=== PATIENT | female | born 1975 | race Caucasian/White ===

== ENCOUNTER 2017-01-21 10:06 | Inpatient (IN) | payer OTHER ==
[~2017-01-21] VITALS: Ht 162.6 cm; Wt 51.7 kg
[2017-01-21 11:02] LABS: ABSOLUTE BASOPHIL COUNT 0.1 /CUMM (0.0-0.2); ABSOLUTE EOSINOPHIL COUNT 0.1 /CUMM (0.0-0.7); ABSOLUTE GRANULOCYTE CT 21.8 /CUMM (1.4-6.5); ABSOLUTE LYMPH COUNT 6.4 /CUMM (1.2-3.4); ABSOLUTE MONOCYTE COUNT 1.4 /CUMM (0.10-0.60); BASOPHIL % 0.2 % (0.0-2.0); EOSINOPHIL % 0.2 % (0-5); GRANULOCYTE % 73.3 % (42.2-75.2); HEMATOCRIT 42.6 % (37-47); MEAN CORPUSCULAR HGB 30.8 PG (27.0-31.0); MEAN CORPUSCULAR HGB CONC 32.8 G/DL (33.0-37.0); MEAN CORPUSCULAR VOLUME 93.9 FL (81.0-99.0); MEAN PLATELET VOLUME 8.4 FL (7.4-10.4); PLATELET COUNT 514 /CUMM (130-400); RBC DISTRIBUTION WIDTH 17.5 % (11.5-14.5); RED BLOOD CELL CT 4.54 /CUMM (4.20-5.40); WHITE BLOOD CELL COUNT 29.7 /CUMM (4.8-10.8)
--- NOTE | 2017-01-21 11:56 | History & Physical ---
JERRI PACE,[employer] 01/21/17 1155: General Information and HPI MD Statement: I have seen and personally examined AGATHA MICHEL and documented this H&P. The patient is a 41 year old F who presented with a patient stated chief complaint of decreased mentation and Altered mental Status. Source of Information: patient, family, old records, Chris Exam Limitations: not alert/orientated, clinical condition History of Present Illness: Mrs. 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 Much of the clinical history was obtained from the patient's as the patient was somnolent and laconic. At the end of December 2016 the patient had some dental work done owing to a last minute attempt at free dental coverage covered by her . Following the dental procedure where 3 of her upper first and second molars on the right were removed she was subsequently prescribed an antibiotic. Her states she consumed the entire dose of antibiotics. Her is unable to recall the name of the antibiotic nor is he able to recall the name of the dentist who performed the tooth extractions. On Thursday01/18/2017 the patient experienced worsening pain at the site of her dental extractions and dysphagia for solids. Over the last 48 hours the patient 's clinical condition has continued to deteriorate with the patient becoming more somnolent and less responsive. She has had a decrease in appetite and only has been able to tolerate PO soda, consuming up to a 12 pack of soda per day. The patient does have an extensive medication history and the of the patient Chris states that since the patient was prescribed Nucynta and Soma approximately 3 years ago the patient's clinical and mental condition have continued to decline. Functionally she now depends more on the assistance of her and her son to help her with activities of daily living. Additional information regarding the patient can be obtained for from a who can be reached on [phone]. Her primary care physician is Dr. Mahoney Allergies/Medications Allergies: Coded Allergies: tramadol (Intermediate, SEIZURES 01/21/17) Compliance With Home Meds: UNKNOWN Past History Travel History Traveled to [place] past 21 day No Medical History Musculoskeletal: chronic back pain Psychiatric: depression Endocrine: diabetes, Sohail's thyroiditis Blood Disorders: Hx of Toxic Shock Syndrome Surgical History Surgical History: Right Shoulder Procedure. Past Family/Social History Family History Relations & Conditions if any FATHER (Diabetic). MOTHER Relation not specified for: Early CAD Psychosocial History Where do you live? Home Who Do You Live With? spouse, child Services at Home: None Primary Language: Swedish Smoking Status: Current Everyday Smoker (Pack and a Half Per Day) ETOH Use: heavy use, Previous history of heavy use till 12/2016 Illicit Drug Use: denies illicit drug use Living Will? no Power of Senior Accountant/HCP? no Functional Ability ADLs Independent: dressing, eating, toileting, bathing. Ambulation: walker IADLs Needs Assist: shopping, housework, finances, food prep, telephone, transportation, medication admin. Employment History Employment Unemployed Review of Systems Review of Systems Constitutional: Reports: chills, diaphoresis, fever. Denies: malaise, weakness. EENTM: Reports: throat pain, mouth pain, tooth pain. Denies: epistaxis, throat swelling. Cardiovascular: Denies: chest pain, edema, orthopena, palpitations. Respiratory: Denies: cough, hemoptysis, orthopnea, short of breath, sputum production. GI: Denies: abdominal pain, bloating, constipation, diarrhea, distention, bowel incontinence, melena, nausea, bloody stool, changes in stool. Genitourinary: Denies: discharge, dysuria, frequency, hematuria, hesitation, nocturia. Musculoskeletal: Reports: joint pain, muscle stiffness. Denies: back pain, gout, joint swelling, muscle pain. Exam & Diagnostic Data Last 24 Hrs of Vital Signs/I&O Vital Signs Date Time Temp Pulse Resp B/P Pulse O2 O2 Flow FiO2 Ox Delivery Rate 01/21 1148 93.0 97 24 173/94 100 Room Air Room Air 01/21 1115 93.6 96 25 159/87 96 Room Air Room Air 01/21 1102 100 Room Air Room Air 01/21 1015 94.3 98 25 164/106 100 Room Air Room Air Intake & Output 01/21 1600 01/21 0800 01/21 0000 Intake Total 2000 Output Total 200 Balance 1800 Intake, IV 2000 Output, Urine 200 Physical Exam General Appearance Moderate Distress, Somnolent , Kussmaul Respirations. HEENT Pupils Sluggish and Bilatterral Reactive to light, Mucous membranes dry, Poor oral dentition, with several teeth extracted. Right Upper Maxillofacial Area. Erythematous, White discharge present Lymphatic Cervical nl Cardiovascular Regular Rate, Normal S1, Normal S2, No Murmurs Lungs Clear to Auscultation Abdomen Normal Bowel Sounds, Soft, No Tenderness Neurological Patient was Alert, however not oriented to time or place. She mumbled a lot of her words and expressed the desire to be discharged. She was able to follow verbal Commandes. Extremities No Clubbing, No Cyanosis, No Edema, Normal Pulses, Cold Feet Vascular Normal Pulses Last 24 Hrs of Labs/Brooks: Laboratory Tests 01/21/17 1115: Methadone Screen Pending, Barbiturate Screen Pending, Ur Phencyclidine Scrn Pending, Amphetamines Screen Pending, U Benzodiazepines Scrn Pending, Urine Cocaine Screen Pending, Urine Cannabis Screen Pending, Urinalysis LIGHT H, Urine Color YEL, Urine Clarity HAZY H, Urine pH 6.0, Ur Specific [place] 1.025, Urine Protein 100 H, Urine Ketones >=80, Urine Nitrite NEG, Urine Bilirubin NEG , Urine Urobilinogen 0.2, Ur Leukocyte Esterase NEG, Ur Microscopic SEDIMENT EXAMINED, Urine RBC 3-5, Urine WBC RARE, Ur Epithelial Cells MOD H, Urine Bacteria FEW H, Granular Casts 3-5 H, Urine Hemoglobin MOD H, Urine Glucose > =1000 H 01/21/17 1038: CBC w Diff MAN DIFF ORDERED, RBC 4.54, MCV 93.9, MCH 30.8, RDW 17.5 H, MPV 8.4, Gran % 73.3, Lymphocytes % 21.5, Monocytes % 4.8, Eosinophils % 0.2, Basophils % 0.2, Absolute Granulocytes 21.8 H, Segmented Neutrophils 65, Band Neutrophils 7 H, Absolute Lymphocytes 6.4 H, Lymphocytes 21, Monocytes 3, Absolute Monocytes 1.4 H, Eosinophils 1, Absolute Eosinophils 0.1, Absolute Basophils 0.1, Metamyelocytes 3 H, Platelet Estimate INCREASED, Normocytic RBCs VERIFIED, Normochromic RBCs VERIFIED, PUBS MCHC 32.8 L 01/21/17 1030: Bicarbonate Actual 5 L, Mixed VBG pH 6.86 L, Mixed VBG pCO2 25 L, Mixed VBG O2 Saturation 35, Carboxyhemoglobin 0.8 L, O2 Concentration % RA, Anion Gap , Estimated GFR > 60, BUN/Creatinine Ratio 12.2, Glucose 759 *H, Lactic Acid 8.8 H, Calcium 10.4 H, Total Bilirubin 0.7, AST 45 H, ALT 24, Alkaline Phosphatase 194 H, Ammonia 40 H, Troponin I 0.05, Total Protein 8.1, Albumin 5.3 H, Globulin 2.8, Albumin/Globulin Ratio 1.9, Phlebotomy Draw Site VENOUS, Acetone Level POSITIVE AT 1:8 DIL Microbiology 01/21 1142 BLOOD: Blood Culture - ORD 01/21 1142 BLOOD: Blood Culture - ORD 01/21 1115 URINE ROUT: Urine Culture - RECD Diagnostic Data EKG Results Repear EKG NSR Assessment/Plan Assessment: Mrs. 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 Patient admitted to critical care unit for further management and closer monitoring. Problem List: #Diabetic ketoacidosis with severe acidosis pH of 6.8, likely precipitated by an infection. Positive acetone. Dil 1:4 #Hypothermia #Leukocytosis possible site of infection is teeth versus facial abscess. #Hyperkalemia Freire day # 1 Respiratory Saturating well 97 % on RA. Continue to monitor. Chest x-ray showed no consolidation or areas of focal infection. ID Although the patient received vancomycin in the emergency department, Begin Empiric IV Unasyn 3 g every [address] of head and neck to rule out any abscesses. Elevated WBC could be in the setting of acute infection/abcess or stress demargination. Patient is currently Hypothermic and has needed bear hugger support to ensure the patient's temperature reaches normal physiologicl limits. Target Temperature: 98.5-99.5. Other sources of infection to be ruled out and an abdominal complete, ultrasound has been ordered, to rule out intrao abdominal pathology. AST was elevated:45 Viral influenza Rapid quick strep Cardiovascular Initial EKG did not show any ST segment changes or acute changes on EKG. If electrolytes remained deranged consider repeating EKG to monitor for any cardiac arrhythmia that may result from potential electrolyte derangements. Initial troponin was 0.05. Initial lactic acid was 8.8 however subsequent one was trended down to 6.1. Repeat one more lactic acid to ensure no lactic acidosis and evidence of hypoperfusion resulting in end organ damage. Continue monitoring lactic acid until trending within normal limits. Heme Current WBC on admission: 29.7. Thrombocythemia. Platelets 514. Repeat CBC in AM Metabolic Metabolic Derangements in the setting of acute DKA. Blood sugar on admission 759-->. Insulin drip started started at 7 units per hour. Titrate to ensure rapid correction does not occur. Target blood sugar should be between 150 -180. Start bicarbonate drip., till pH reaches a minumum of 7. Administer potassium with a combination of normal saline and sodium bibicarbonate. Boluses of 10 mEq KCl can be given as needed. Target Potassium is 4.5. Monitor finger sticks every hour. BEP every 2 hours. Once blood sugar reaches 250, IV fluids can then be changed to D5 half-normal saline with 20 mEq of potassium chloride to ensure patient does not become hypoglycemic. Monitor AG, once normalizes, IV insulin can be switched to SC insulin, following an overlap with IV and SC insulin. Monitor daily phosphrus and replete. Consider HbA1C add on for an indication of how the patient blood sugar has been maintained over the last three months. Daily Weights. Alimentary NPO for now. Once patient is regains mentation consider Swallow Evaluation. Oral Hygiene. Nutritional Consult in AM. Nicotine patch PRN. Neurology Consider Psych Consult in AM. The patient seems to have had a history of alcohol abuse. She also has a history of opiod depandance and there was mention of a trial of suboxone to wean her off opiod medications. Urines also positive for Benzodiazepine. Avoid any sedating medications overnight. Patient's claims that she has had a bad reaction to tramadol in the past whereby the patient seizes. Other Obtain medical records from Dentist in AM Diet: NPO IVF: Refer to Above DVT ppx ALPS + Heparin Sub Q Code Full As Ranked By This Provider Problem List: 1. Sepsis 2. DKA (diabetic ketoacidoses) 3. Toothache Core Measures/Miscellaneous Acute Coronary Syndrome ACS Diagnosis: No Cerebrovascular Accident CVA/TIA Diagnosis: No Congestive Heart Failure CHF Diagnosis: No Venous Thromboembolism VTE Risk Factors: Acute medical illness, Age > 40 No Mech VTE prophylaxis d/t: No contraindications No VTE Pharm Prophylaxis d/t: No contraindications VTE Diagnosis: No VTE Type: NONE VTE Confirmed by (Test): NONE Severe Sepsis Severe Sepsis Present: No Septic Shock Septic Shock Present: No Miscellaneous Documentation Attending Case Discussed With: Dr Martines Primary Care Physician: PETER MAHONEY MD Patient sees these Specialists NA Level of Patient Care: Critical Care (CRI) ROXI ALLEN 01/21/17 1159: Resident Review Statement Resident Statement: examined this patient, discussed with mechanical engineering intern, discussed with family Other Findings: Patient is 41-year-old female with past medical history significant for chronic knee pain and back pain was brought in by after she was found lethargic and confused this morning. Per , patient had dental work done 2 weeks ago and had some teeth removed on the right side. reported that patient was advised to have those teeth removed a year ago because of an ongoing infection. Post removal, patient completed her course of antibiotics with clindamycin. On 01/18/17, patient started reporting of pain in the throat and difficulty swallowing. Per patient did not have any fever or chills at home. No sick contacts at home. states that patient spends most of her time on the couch watching TV. Per , patient never had a diagnosis of diabetes and was not on any medication for that. 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 On examination patient was very confused and lethargic. Minimally responsive to instructions. Her speech was incoherent and not understandable. Labs WBC 29.7, hemoglobin 14, sodium 1:30, potassium 3.9, Bicarb <5, blood glucose on admission 759, lactic acid 8.8, U tox positive for benzodiazepines. UA negative for UTI however positive for hemoglobin and glucose >1000. We've EGD revealed pH of 6.86 Anion gap of 32 mEq/L was per liter Imaging Chest x-ray done in ER The lungs are clear with no focal consolidation or other abnormality evident. The heart and mediastinal structures are normal. No bony abnormality is seen. Assessment and plan. Elevated blood glucose level due to DKA The patient will be admitted to critical care unit for management of blood glucose General started on insulin drip starting at 7 units per hour, will monitor labs including electrolytes and blood glucose every 2 hours and adjust the insulin drip accordingly Will start patient on bicarbonate drip running at 75 in half normal saline, will start normal saline at 500 per hour with 20 meq k for the first 2 hours and then at 250cc/hr. Will watch potassium closely. Endocrinology consult service Dr. Damico on board and agreement with above plan. Tooth infection Poor dental hygiene, yellowish material seen in the right moral region. We'll start patient on vancomycin and get ID consult on board Temperature 93.6 on admission, will continue bear hugger for now. Will hold off. Pain meds for now for chronic pain and reconsider once patient is more awake and alert. 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 She is on Nucynta and Soma for her pain. 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 The patient presented to the ED on 01/21/2017 after the patient progressively worsened at home. Several weeks ago, the patient underwent 3-6 fractions, and she was prescribed clindamycin. Three days prior to admission, the patient experienced increased pain at the dental extraction site along with dysphasia. Over the past 48 hours the patient was unable to eat, noting she was consuming up to a 12 pack of soda per day. She became progressively somnolent and less responsive and she was sent to the emergency department for further evaluation. The patient was evaluated and found to be in severe he came a with a severe metabolic acidosis noting that her pH was 6.8. The patient also had a white count of 29,000. Chest x-ray and urinalysis were unremarkable. She was started on an insulin drip, and aggressive IV fluid rehydration with potassium repletion as per endocrinology. She was also given Narcan with improvement in her level of responsiveness. The patient was pancultured and given vancomycin and ceftazidime. She was placed on a bear hugger for hypothermia. She is not able to offer complaints at the present time. Impression: 1. Acute DKA. 2. Hypothermia and markedly cytosis, rule out odontogenic source of infection in the setting of recent dental work. 3. A SPECIAL POPULATION PARAPROFESSIONAL infection was considered however the patient's mental status is overall improving. 4. An intraoperative abdominal process will be considered as well. 5. History of chronic pain, on Nucynta and Soma. 6. 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 Plan: * Continue insulin drip, q 1 hour blood sugars, IVF resuscitation, labs q 2 hours and aggressive electrolyte repletion. Appreciate endocrine input. * Bicarbonate has been given and we will check a follow-up arterial blood gas. * CT of the maxillofacial area and neck ordered. Will need to follow up results after the testing is been completed. * Start Unasyn 3 g IV every 6 hours. * Will follow up culture results. * Continue to follow ID recommendations, appreciate input. * Agree with abdominal ultrasound. * Check for influenza and do a quick strep. * We will continue DVT prophylaxis at all times. * The patient is critically ill and needs to be monitored in the critical care unit. I discussed plan of care with the housestaff and asked them to contact me should the patient's condition change or deteriorate.
--- NOTE | 2017-01-21 12:24 | RADIOLOGY REPORT ---
EXAMINATION: XR PORTABLE CHEST CLINICAL INFORMATION: Pneumonia. Altered mental status. COMPARISON: None TECHNIQUE: Portable portable AP supine chest. view of the chest was obtained. FINDINGS: The lungs are clear with no focal consolidation or other abnormality evident. The heart and mediastinal structures are normal. No bony abnormality is seen. IMPRESSION: Unremarkable examination.
--- NOTE | 2017-01-21 12:27 | ED CRITICAL CARE ---
History of Present Illness General Chief Complaint: General Adult Stated Complaint: HIGH BLOOD SUGAR Source: family, old records, EMS Exam Limitations: clinical condition Vital Signs & Intake/Output Vital Signs & Intake/Output Vital Signs Date Time Temp Pulse Resp B/P Pulse O2 O2 Flow FiO2 Ox Delivery Rate 01/21 1217 93.6 103 22 167/86 100 Room Air Room Air 01/21 1148 93.0 97 24 173/94 100 Room Air Room Air 01/21 1115 93.6 96 25 159/87 96 Room Air Room Air 01/21 1102 100 Room Air Room Air 01/21 1015 94.3 98 25 164/106 100 Room Air Room Air Allergies Coded Allergies: tramadol (Intermediate, SEIZURES 01/21/17) Triage Note: PT PRESENTS TO ER WITH ALTERED MENTAL STATUS. PT BIBA FROM HOME. PER EMS SPOUSE CALLED 911 BECAUSE PT WAS LETHARGIC AND AMS. PT WAS FOUND BY EMS TO BE COVERED IN FECES AND WITH A BLOOD SUGAR READING HIGH. UPON ARRIVAL PT AMS AND PT UNKEMPT AND COVERED IN FECES. PT BS READING HIGHER THAN 500. PT UNABLE TO ANSWER QUESTIONS OR VERBALIZE ANY COMPLAINTS. PT GRABBING AT LINES AND WIRES. PT CLEANED AND TURNED AND POSITIONED. PT PLACED INTO A CLEAN GOWN. BILATERAL ACCESS ESTABLISHED AND PT PLACED ON JUTE BAG SEWER. DEL TORO CATH INSERTED Triage Nurses Notes Reviewed? yes Onset: Last week Duration: day(s):, constant, continues in ED Timing: recent history Injury Environment: home Severity: severe Pain Location: mouth Modifying Factors: Improves With: rest. Worsens With: movement. Associated Symptoms: confusion, trouble walking LMP (ages 10-50): unknown : No Patient currently breastfeeds: No HPI: Spouse reports the patient has had poor health dentition lack of medical care and follow-up for several years prior to admission. She has been on opiates for chronic pain attempted weaning with Suboxone. 2 weeks prior to admission patient had dental extractions for chronic caries. 5 days prior to admission patient had increased fatigue activity appetite with increased drinking of fluids. Spouse reports there's been no fever chills nausea vomiting diarrhea abdominal pain chest pain cough headache dysuria rash bleeding. Past History Travel History Traveled to [place] past 21 day No Medical History Any Pertinent Medical History? see below for history Psychiatric: depression Endocrine: diabetes, Sohail's thyroiditis Surgical History Surgical History: non-contributory Psychosocial History What is your primary language Puerto Rican Tobacco Use: UN Family History Hx Contributory? No Review of Systems Review of Systems Constitutional: Reports: see HPI, weakness. Eyes: Reports: no symptoms. Ears, Nose, Throat, Mouth: Reports: no symptoms. Respiratory: Reports: no symptoms. Cardiovascular: Reports: no symptoms. Gastrointestinal/Abdominal: Reports: no symptoms. Genitourinary: Reports: no symptoms. Musculoskeletal: Reports: no symptoms. Skin: Reports: no symptoms. Neurological/Psychological: Reports: see HPI, confusion, weakness. All Other Systems: Reviewed and Negative Physical Exam Physical Exam General Appearance: lethargic, severe distress, thin Head: atraumatic, normal appearance Eyes: Bilateral: normal appearance, PERRL, EOMI, normal inspection. Ears, Nose, Throat, Mouth: hearing grossly normal, dry mucous membranes Neck: normal inspection, supple, full range of motion, normal alignment Respiratory: normal breath sounds, chest non-tender, no respiratory distress, quiet respiration Cardiovascular: regular rate/rhythm, normal peripheral pulses, norml femoral pulses equa Peripheral Pulses: 4+ carotid (R), 4+ carotid (L) Gastrointestinal: normal bowel sounds, soft, non-tender, no organomegaly Back: normal inspection, normal range of motion Extremities: normal range of motion, no ligament instability Neurologic/Psych: disoriented x 3, motor weakness Skin: pallor Core Measures ACS in differential dx? Yes ASA ordered for poss ACS? No-ACS ruled out CVA/TIA Diagnosis: No Severe Sepsis Present: Yes BC x2: Yes Lactic Acid x2: Yes IV ABX Broad Spectrum: Yes NS/LR Started: Yes Septic Shock Present: No ED Sepsis Exam Date of Focused Sepsis Exam: 01/21/17 Time of Focused Sepsis Exam: 1355 Sepsis Cardiac Exam: Tachycardia Sepsis Resp Exam: CTA Sepsis Cap Refill Exam: >2 sec Sepsis Peripheral Pulse Exam: Normal Sepsis Peripheral Pulse Location: Radial Sepsis Skin Color Exam: Pale Skin Temp/Moisture Exam: Cool/Dry Progress Differential Diagnoses I considered the following diagnoses in my evaluation of the patient: Bacteremia pneumonia DKA Plan of Care: Orders Procedure Date/time Status BASIC ELECTROLYTES PLUS BUN&CR 01/21 1500 Active LACTIC ACID 01/21 1338 Active Add-on Test (ER Only) 01/21 1328 Active BASIC ELECTROLYTES PLUS BUN&CR 01/21 1249 Active FingerStick- Glucose 01/21 1203 Active LOWER RESPIRATORY CULTURE 01/21 1155 Active Patient Data 01/21 1152 Active BLOOD CULTURE 01/21 1142 Active Restraint- Medical 01/21 1130 Active Admit to inpatient 01/21 1128 Active [place], Insertion/Removal/Asses 01/21 1108 Active CULTURE,URINE 01/21 1108 Active URINE DRUG SCREEN FOR ER ONLY 01/21 1108 Complete URINALYSIS 01/21 1108 Complete Intake & Output 01/21 1102 Active Restraint- Discontinue 01/21 1100 Active Patient Safety Monitor 01/21 1100 Active MIXED VENOUS BLOOD GAS (GEN) 01/21 1038 Complete TROPONIN LEVEL 01/21 1038 Complete LACTIC ACID 01/21 1038 Complete COMPREHENSIVE METABOLIC PANEL 01/21 1038 Complete CBC WITHOUT DIFFERENTIAL 01/21 1038 Complete AMMONIA LEVEL 01/21 1038 Complete ACETONE 01/21 1038 Complete EKG 01/21 1038 Active Current Medications Sig/Philip Start time Last Medication Dose Stop Time Status Admin Potassium Chloride 20 MEQ Q4H 01/21 1545 AC (KCl 20MEQ in NS 01/22 0344 1000ML) Sodium Chloride 1,000 ML (Normal Saline 0.9%) Potassium Chloride 20 MEQ Q2H 01/21 1345 AC (KCl 20MEQ in NS 01/21 1544 1000ML) Sodium Chloride 1,000 ML (Normal Saline 0.9%) Potassium Chloride 10 MEQ Q1H 01/21 1330 CAN 01/21 1431 Sodium Bicarbonate 75 MEQ Q13H 01/21 1300 AC (Sodium Bicarbonate 8.4%) Sodium Chloride 1,000 ML (Half Normal Saline) Sodium Chloride 1,000 ML Q2H 01/21 1300 CAN (Normal Saline 0.9%) 01/21 1459 Vancomycin HCl 1,000 MG ONCE ONE 01/21 1228 CAN Sodium Chloride 250 ML 01/21 1229 (Normal Saline 0.9%) Insulin Human Regular 100 UNIT ONCE ONE 01/21 1200 CAN (Novolin R (Insulin 01/21 1201 Drip)) Sodium Chloride 100 ML (Normal Saline 0.9%) Sodium Bicarbonate 100 MEQ ONCE ONE 01/21 1130 CAN (Sodium Bicarbonate 01/21 1809 8.4%) Dextrose/Water 1,000 ML (D5W 1000) Laboratory Tests 01/21/17 1115: Urine Opiates Screen < 100.00, Methadone Screen < 40, Barbiturate Screen < 60, Ur Phencyclidine Scrn < 6.00, Amphetamines Screen < 100, U Benzodiazepines Scrn 491 H, Urine Cocaine Screen < 50, Urine Cannabis Screen 13.70, Urinalysis LIGHT H, Urine Color YEL, Urine Clarity HAZY H, Urine pH 6.0, Ur Specific [place] 1.025, Urine Protein 100 H, Urine Ketones >=80, Urine Nitrite NEG, Urine Bilirubin NEG, Urine Urobilinogen 0.2, Ur Leukocyte Esterase NEG, Ur Microscopic SEDIMENT EXAMINED, Urine RBC 3-5, Urine WBC RARE, Ur Epithelial Cells MOD H, Urine Bacteria FEW H, Granular Casts 3-5 H, Urine Hemoglobin MOD H, Urine Glucose >=1000 H 01/21/17 1038: CBC w Diff MAN DIFF ORDERED, RBC 4.54, MCV 93.9, MCH 30.8, RDW 17.5 H, MPV 8.4, Gran % 73.3, Lymphocytes % 21.5, Monocytes % 4.8, Eosinophils % 0.2, Basophils % 0.2, Absolute Granulocytes 21.8 H, Segmented Neutrophils 65, Band Neutrophils 7 H, Absolute Lymphocytes 6.4 H, Lymphocytes 21, Monocytes 3, Absolute Monocytes 1.4 H, Eosinophils 1, Absolute Eosinophils 0.1, Absolute Basophils 0.1, Metamyelocytes 3 H, Platelet Estimate INCREASED, Normocytic RBCs VERIFIED, Normochromic RBCs VERIFIED, PUBS MCHC 32.8 L 01/21/17 1030: Bicarbonate Actual 5 L, Mixed VBG pH 6.86 L, Mixed VBG pCO2 25 L, Mixed VBG O2 Saturation 35, Carboxyhemoglobin 0.8 L, O2 Concentration % RA, Anion Gap , Estimated GFR > 60, BUN/Creatinine Ratio 12.2, Glucose 759 *H, Lactic Acid 8.8 H, Calcium 10.4 H, Total Bilirubin 0.7, AST 45 H, ALT 24, Alkaline Phosphatase 194 H, Ammonia 40 H, Troponin I 0.05, Total Protein 8.1, Albumin 5.3 H, Globulin 2.8, Albumin/Globulin Ratio 1.9, Phlebotomy Draw Site VENOUS, Acetone Level POSITIVE AT 1:8 DIL Microbiology 01/21 1230 BLOOD: Blood Culture - RECD 01/21 1155 LOWER RESP: Respiratory Culture - ORD 01/21 1155 LOWER RESP: Gram Stain - ORD 01/21 1145 BLOOD: Blood Culture - RECD 01/21 1115 URINE ROUT: Urine Culture - RECD Diagnostic Imaging: Viewed by Me: Radiology Read. Discussed w/RAD: Radiology Read. CXR Impression: no acute abnormality Initial ED EKG: normal axis, normal intervals, normal p-waves, normal QRS complex, normal sinus rhythm, rhythm (sinus tachycardia), nonspecific ST T wave chg Rhythm Strip: sinus tachycardia Departure Departure Disposition: STILL A PATIENT Condition: Critical Clinical Impression Primary Impression: DKA (diabetic ketoacidoses) Secondary Impressions: Sepsis Referrals: PETER MAHONEY MD (PCP/Family) Departure Forms: Customer Survey General Discharge Information Admission Note Spoke With: PETER MAHONEY MD Documentation of Exam: Documentation of any treatments & extenuating circumstances including Concerns Regarding Discharge (functional status, medication knowledge or non-compliance, living conditions, etc.) that warrant an admission rather than observation: ICU monitoring warming blanket IV antibiotics IV insulin IV sodium bicarbonate drip serial lab exam endocrinology evaluation ICU evaluation continuing care discharge planning Critical Care Note Critical Care Note Critical Care Time: 30-74 min (45)
--- NOTE | 2017-01-21 13:37 | Cons- Endocrinology ---
General Information and HPI Consulting Request Date of Consult: 01/21/17 Requested By: medical team Reason for Consult: Diabetic ketoacidosis Source of Information: patient, family Exam Limitations: unable to give history History of Present Illness: This 41-year-old woman apparently had some extensive dental work a few weeks ago. Over the last several days she has been noted to be very lethargic and weak. Apparently she refused to come to the hospital until her finally called 911 today. She has been found to be in diabetic ketoacidosis with a pH of 6.8, blood sugar 759, bicarbonate less than 5 serum acetone positive to 1-8 dilution. Lactic acid is also high at 8.8. The patient herself cannot give history at this time but is awake and tries to answer questions. Allergies/Medications Allergies: Coded Allergies: tramadol (Intermediate, SEIZURES 01/21/17) Home Med List: Blood Sugar Diagnostic (Test Strips) 1 EACH STRIP 1 BOX N TID Diabetes Blood-Glucose Control, Normal (Meter-Check) 1 EACH EACH 1 UNIT UNK DAILY Diabetes Insulin Aspart, Recombinant (Novolog Flexpen) 100 UNIT/ML INSULN.PEN 1 PEN SC SEE ADMIN CRITERIA Diabetes This medication needs to be taken before your meals. You will need to check your blood sugar, based on the level, take this medication as per instructions below: Sliding Scale: Blood Sugar less than 80mg/dl: Initiate Hypoglycemia 80-150 mg/dl: 3 units 151-200 mg/dl: 4 units 201-250 mg/dl: 5 units 251-300 mg/dl: 6 units 301-350 mg/dl: 7 units 351-400 mg/dl: 8 units More than 400 mg/dl: 9 units call Insulin Detemir (Levemir Flextouch) 100 UNIT/ML (3 ML) INSULN.PEN 5 UNIT SC BID Diabetes Lancets (Accu-Chek) 1 EACH EACH 1 100 N TID Diabetes Levothyroxine Sodium (Synthroid) 75 MCG TABLET 1 TAB PO DAILY Hypothyroid Past History Travel History Traveled to [place] past 21 day No Medical History Psychiatric: depression Endocrine: diabetes, Sohail's thyroiditis Surgical History Surgical History: non-contributory Exam & Diagnostic Data Last 24 Hrs of Vital Signs/I&O 110/70 Physical Exam General Appearance: lethargic, moderate distress Head: normal appearance Eyes: Bilateral: normal appearance. Respiratory: increased respiratory rate Cardiovascular: tachycardia Gastrointestinal: normal bowel sounds, soft Extremities: normal inspection Neurologic/Psych: no motor/sensory deficits (stupor), lethargic Skin: intact Assessment/Plan Assessment/Plan This patient has diabetic ketoacidosis with severe acidosis and the pH of 6.8 and positive serum acetone. Her serum lactic acid is also elevated at 8.8. Possible source of infection is infected teeth and abscesses in her mouth. With regard to the ketoacidosis we need to begin an insulin drip at 7 units an hour. We need to replete her fluid and electrolytes with normal saline with 20 mEq KCl at 500 mL per hour for the next liter then 250 mL per hour thereafter. She also needs to be placed on a bicarbonate drip cause her PTH is so low. We would ordinarily dilute 100 nmols of sodium bicarbonate in 400 mL of sterile water with 20 mEq KCl and run that at 200 mL per hour. However the pharmacy cannot make that drip up quickly so we need to give bicarbonate in an IV with half normal saline. The patient's serum potassium needs to be repleted starting now as her baseline serum potassium is only 3.9 As we bring down her sugar and give her insulin the potassium is going to drop much lower. We should check her sugar every hour by fingerstick and repeat her labs every 2 hours until stable. When her fingerstick blood sugar drops to 250 we need to change her IV to D5 half-normal saline with 20 mEq KCl at 150 mL per hour. The patient has been covered with IV vancomycin for possible sepsis from her tooth infections. Consult Acknowledgment - Thank you for your consult request.
[2017-01-21 14:40] VITALS: BP 109/62
--- NOTE | 2017-01-21 15:16 | Cons- Infect Disease ---
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 On admission she was responsive only to painful stimuli. Her temperature was 93, with blood pressure 164/106. Initial labs revealed a white blood cell count 30,000, with 65 segs and 7 bands, glucose 759, BUN/creatinine 11 and 0.9, sodium 130, lactic acid 8.8, acetone +1:8, alk phosphatase 194, AST/ ALT 45 and 24, ammonia 40. Urinalysis 3-5 RBC/rare WBCs. Chest x-ray negative. She was begun on an insulin drip, bicarbonate drip, Vancomycin and Ceftazidime and IV fluids, and she was placed on a bear hugger. Presently she is able to give some history. She is complaining of being hot and wants the bear hugger off. She denies any specific pain or shortness of breath at this time. Allergies/Medications Allergies: Coded Allergies: tramadol (Intermediate, SEIZURES 01/21/17) Past History Travel History Traveled to [place] past 21 day No Medical History Psychiatric: depression Endocrine: Sohail's thyroiditis Isolation History: Standard Surgical History Surgical History: non-contributory Review of Systems Comments Unobtainable Exam & Diagnostic Data Last 24 Hrs of Vital Signs/I&O Vital Signs Date Time Temp Pulse Resp B/P Pulse O2 O2 Flow FiO2 Ox Delivery Rate 01/21 1415 95.7 112 22 175/101 100 Room Air Room Air 01/21 1345 94.6 116 20 172/105 100 Room Air Room Air 01/21 1315 93.9 112 25 192/104 100 Room Air Room Air 01/21 1217 93.6 103 22 167/86 100 Room Air Room Air 01/21 1148 93.0 97 24 173/94 100 Room Air Room Air 01/21 1115 93.6 96 25 159/87 96 Room Air Room Air 01/21 1102 100 Room Air Room Air 01/21 1015 94.3 98 25 164/106 100 Room Air Room Air Intake & Output 01/21 1600 01/21 0800 01/21 0000 Intake Total 2000 Output Total 200 Balance 1800 Intake, IV 2000 Output, Urine 200 Physical Exam Other Physical Findings: She is awake and alert, slightly agitated but oriented to person and place and in no acute distress. Temperature was 93. Skin reveals no rash. HEENT exam status post removal of several teeth from the right maxillary area, with no obvious inflammatory process. Neck is supple with no adenopathy. Lungs are clear. Heart regular rhythm with no murmur. Abdomen is soft, questionable tenderness on palpation, with positive bowel sounds. Back no CVA tenderness. Extremities no cyanosis, clubbing or edema. Neuro is without focality. Last 24 Hours of Lab Results: Laboratory Tests 01/21 01/21 01/21 1500 1406 1406 Chemistry Sodium (137 - 145 mmol/L) Cancelled 143 Potassium (3.5 - 5.1 mmol/L) Cancelled 2.7 *L Chloride (98 - 107 mmol/L) Cancelled 106 Carbon Dioxide (22 - 30 mmol/L) Cancelled < 5 *L Anion Gap (5 - 16) Cancelled BUN (7 - 17 mg/dL) Cancelled 11 Creatinine (0.5 - 1.0 mg/dL) Cancelled 0.8 Estimated GFR (>60 ml/min) > 60 BUN/Creatinine Ratio (7 - 25 %) Cancelled 13.8 Glucose (65 - 99 mg/dL) 498 H Lactic Acid (0.7 - 2.1 mmol/L) 6.1 H 01/21 01/21 1115 1038 Hematology CBC w Diff MAN DIFF ORDERED WBC (4.8 - 10.8 /CUMM) 29.7 H RBC (4.20 - 5.40 /CUMM) 4.54 Hgb (12.0 - 16.0 G/DL) 14.0 Hct (37 - 47 %) 42.6 MCV (81.0 - 99.0 FL) 93.9 MCH (27.0 - 31.0 PG) 30.8 RDW (11.5 - 14.5 %) 17.5 H Plt Count (130 - 400 /CUMM) 514 H MPV (7.4 - 10.4 FL) 8.4 Gran % (42.2 - 75.2 %) 73.3 Lymphocytes % (20.5 - 51.1 %) 21.5 Monocytes % (1.7 - 9.3 %) 4.8 Eosinophils % (0 - 5 %) 0.2 Basophils % (0.0 - 2.0 %) 0.2 Absolute Granulocytes (1.4 - 6.5 /CUMM) 21.8 H Segmented Neutrophils (42.2 - 75.2 %) 65 Band Neutrophils (0.0 - 5.0 %) 7 H Absolute Lymphocytes (1.2 - 3.4 /CUMM) 6.4 H Lymphocytes (20.5 - 51.1 %) 21 Monocytes (1.7 - 9.3 %) 3 Absolute Monocytes (0.10 - 0.60 /CUMM) 1.4 H Eosinophils (0 - 5.0 %) 1 Absolute Eosinophils (0.0 - 0.7 /CUMM) 0.1 Absolute Basophils (0.0 - 0.2 /CUMM) 0.1 Metamyelocytes (0.0 - 1.0 %) 3 H Platelet Estimate (ADEQUATE) INCREASED Normocytic RBCs VERIFIED Normochromic RBCs VERIFIED PUBS MCHC (33.0 - 37.0 G/DL) 32.8 L Toxicology Urine Opiates Screen (>2000 NG/ML) < 100.00 Methadone Screen (>300 NG/ML) < 40 Barbiturate Screen (>200 NG/ML) < 60 Ur Phencyclidine Scrn (>25 NG/ML) < 6.00 Amphetamines Screen (>1000 NG/ML) < 100 U Benzodiazepines Scrn (>200 NG/ML) 491 H Urine Cocaine Screen (>300 NG/ML) < 50 Urine Cannabis Screen (>50 NG/ML) 13.70 Urines Urinalysis LIGHT H Urine Color (YEL,AMB,STR) YEL Urine Clarity (CLEAR) HAZY H Urine pH (5.0 - 8.0) 6.0 Ur Specific [place] (1.001 - 1.035) 1.025 Urine Protein (NEG,<30 MG/DL) 100 H Urine Ketones (NEG) >=80 Urine Nitrite (NEG) NEG Urine Bilirubin (NEG) NEG Urine Urobilinogen (0.1 - 1.0 EU/dl) 0.2 Ur Leukocyte Esterase (NEG) NEG Ur Microscopic SEDIMENT EXAMINED Urine RBC (0 - 5 /HPF) 3-5 Urine WBC (0 - 2 /HPF) RARE Ur Epithelial Cells (NONE,FEW) MOD H Urine Bacteria (NEG/NONE) FEW H Granular Casts (NONE /LPF) 3-5 H Urine Hemoglobin (NEG) MOD H Urine Glucose (N MG/DL) >=1000 H 01/21 1030 Blood Gas Bicarbonate Actual (22 - 26 MEQ/L) 5 L Mixed VBG pH (7.31 - 7.41 PH) 6.86 L Mixed VBG pCO2 (41 - 51 TORR) 25 L Mixed VBG O2 Saturation (35 - 45 TORR) 35 Carboxyhemoglobin (1.5 - 5.0 %) 0.8 L O2 Concentration % RA Chemistry Sodium (137 - 145 mmol/L) 130 L Potassium (3.5 - 5.1 mmol/L) 3.9 Chloride (98 - 107 mmol/L) 93 L Carbon Dioxide (22 - 30 mmol/L) < 5 *L Anion Gap (5 - 16) BUN (7 - 17 mg/dL) 11 Creatinine (0.5 - 1.0 mg/dL) 0.9 Estimated GFR (>60 ml/min) > 60 BUN/Creatinine Ratio (7 - 25 %) 12.2 Glucose (65 - 99 mg/dL) 759 *H Lactic Acid (0.7 - 2.1 mmol/L) 8.8 H Calcium (8.4 - 10.2 mg/dL) 10.4 H Total Bilirubin (0.2 - 1.3 mg/dL) 0.7 AST (14 - 36 U/L) 45 H ALT (9 - 52 U/L) 24 Alkaline Phosphatase (<127 U/L) 194 H Ammonia (9 - 30 umol/L) 40 H Troponin I (< 0.11 ng/ml) 0.05 Total Protein (6.3 - 8.2 g/dL) 8.1 Albumin (3.5 - 5.0 g/dL) 5.3 H Globulin (1.9 - 4.2 gm/dL) 2.8 Albumin/Globulin Ratio (1.1 - 2.2 %) 1.9 Miscellaneous Phlebotomy Draw Site VENOUS Toxicology Acetone Level (NEGATIVE) POSITIVE AT 1:8 DIL Last 24 Hours of [place] Results: Blood cultures 2 pending Urine culture pending Diagnostic Data Recent Imaging Findings: Chest x-ray, personally reviewed, negative Assessment/Plan Assessment/Plan Impression: This is a 41-year-old woman with no prior history of diabetes, status post several dental extractions several weeks prior to admission, admitted today after found to be lethargic with an altered mental status following several days of a sore throat and dysphagia, and found to be in DKA with hypothermia and a marked leukocytosis. Her recent dental work raises concern for an odontogenic source of infection, particularly with the recent sore throat and dysphagia, though there is no clear evidence for infection on her exam. 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 An intra-abdominal process is possible, with questionable abdominal tenderness and elevated alkaline phosphatase and AST. She has no evidence for a pneumonia or urinary tract infection. Her leukocytosis may be secondary to stress, but she can be covered empirically pending further evaluation. Suggestion: 1. Would check a nasopharyngeal swab for influenza and do a quick strep 2. Consider CT of the maxillofacial area and neck 3. Check amylase/lipase and consider right upper quadrant ultrasound 4. Follow-up recent cultures 5. Begin Unasyn 3 g IV every 6 hours pending above Consult Acknowledgment - Thank you for your consult request.
--- NOTE | 2017-01-21 15:40 | Event Note ---
Event Note Event Note: Spoke with pharmacy, it is alright to run 2 bags of 10 meq runs of KCL bolus in addition to 20 meq kCL in IV fluids running at 500cc/hr for 2 hours since the start.
--- NOTE | 2017-01-21 16:11 | Admission Certification ---
Admission Certification Certification Statement - As attending physician, I certify that at the time of - admission, based on clinical presentation, severity of - symptoms, need for further diagnostic testing and - therapeutic interventions, and risk of adverse outcomes - without in-hospital treatment, in my clinical assessment, - this patient requires an acute hospital stay for a minimum - of two nights or longer. I have also considered psychsocial - factors such as support system, advanced age, financial - issues, cognitive issues, and failed out-patient treatments, - past re-admission history, safety of patient, and lack of - compliance as applicable. Specific rationale supporting this admission is: The patient requires critical care intervention, including a bicarbonate drip, insulin drip, every one hour fingersticks, endocrinology consult, and treatment for underlying sepsis.
[2017-01-21 17:45] VITALS: BP 115/75
--- NOTE | 2017-01-21 18:09 | CT SCAN REPORT ---
EXAMINATION: CT HEAD WITHOUT AND WITH CONTRAST CT NECK WITH CONTRAST CLINICAL INFORMATION: Evaluate for any abscess secondary to dental workup. COMPARISON: None. TECHNIQUE: Contiguous axial imaging was performed from the skullbase to vertex without and with intravenous administration of contrast. Multidetector helical imaging was performed through the neck following intravenous administration of 95 mL of Optiray 320. DLP: 600.71, 416.71 mGy-cm. FINDINGS: Head: There is no evidence of acute intracranial hemorrhage or territorial infarction. No abnormal mass effect or midline shift is seen. Sibley to white matter differentiation is well preserved. No extra-axial fluid collections are identified. There is no abnormal enhancement. The ventricles are normal in size. There is no abnormal attenuation within the brain parenchyma. The osseous structures and soft tissues are normal. The mastoid air cells are well aerated. There is very mild mucosal thickening along the floor of the right maxillary sinus. Neck: No contour abnormality or pathologic enhancement is seen within the pharyngeal mucosal space or oral cavity. The larynx is normal. The thyroid gland is homogeneous. The submandibular glands appear normal. The parotid glands are unremarkable. No soft tissue fluid collections are seen. There is no cervical adenopathy. The carotid sheath vasculature opacifies normally. There are right maxillary extraction tooth sockets visible. No fluid levels are seen within the right maxillary sinus. 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 No retropharyngeal fluid collection is seen. The imaged mediastinum is normal. The visualized portions of the lungs are clear. The orbits are normal. No osseous abnormality seen. IMPRESSION: Head: No acute intracranial pathology. Normal CT scan of the head. Neck: No soft tissue fluid collection or pathologic enhancement. No adenopathy. Right maxillary extraction tooth sockets. Mild mucosal thickening along the floor of the right maxillary antrum.
[2017-01-21 20:00] VITALS: BP 116/78
--- NOTE | 2017-01-21 21:18 | ULTRASOUND REPORT ---
EXAMINATION: US ABDOMEN COMPLETE CLINICAL INFORMATION: ?Abdominal Infectious Process Signs Symptoms: Increased AST, Leukocytosis, AMS. COMPARISON: None TECHNIQUE: Real-time imaging of the abdominal viscera. Color Doppler exam utilized. FINDINGS: Exam limited. Patient unable to position for optimal imaging. PANCREAS: Normal. ABDOMINAL AORTA: The proximal segment is normal in caliber. INFERIOR VENA CAVA: Visualized portions are normal. LIVER: Normal. The liver demonstrates normal size, contour and echogenicity. No focal lesion or intrahepatic biliary duct dilatation. GALLBLADDER: Normal. The gallbladder is physiologically distended without evidence of stones, sludge, polyps, wall thickening or pericholecystic fluid. COMMON BILE DUCT: Normal in caliber measuring 0.5 cm in diameter. RIGHT KIDNEY: Normal. No hydronephrosis. No renal calculi or focal parenchymal lesions. The kidney measures 11.2 cm in maximum dimension. LEFT KIDNEY: Poorly visualized. SPLEEN: Normal. The spleen measures 9.7 cm in maximum dimension. FREE FLUID: None. IMPRESSION: Normal ultrasound of abdomen.
[2017-01-21 22:00] VITALS: BP 116/69
[2017-01-22] VITALS (12 sets, daily range): BP systolic 96–139; BP diastolic 29–83
--- NOTE | 2017-01-22 07:47 | PN- Resident CRCU ---
Subjective HPI/CRCU Issues: Ms. Michel was seen and examined this morning. She was resting comfortably in bed. Patient is alert and oriented 3. She denies any acute events overnight. She denies any fever, chills, nausea, vomiting. Denies any maxillofacial or dental pain. States that she has minor abdominal pain on deep palpation and that she does state that she is hungry and would like to resume a diet. She did endorse that she would like her wrist restraints removed. She does states that she would like to be discharged home as soon as possible. Objective Vital Signs & I&O Last 8 Hrs of Vitals and I&O: T:97.6 AR: 94 RR: 19 BP 139/83 Exam General Appearance: well developed/nourished, no apparent distress, alert, awake , comfortable Neck: normal inspection Respiratory: normal breath sounds, chest non-tender, no respiratory distress Cardiovascular: regular rate/rhythm Gastrointestinal: normal bowel sounds, soft, non-tender, no organomegaly Extremities: normal inspection, Cold Feet Cranial Nerves: normal speech Skin: intact Back: normal inspection Current Medications: Current Medications Sig/Philip Start time Last Medication Dose Route Stop Time Status Admin Ampicillin Sodium/ 3,000 MG Q6 01/21 1800 AC 01/22 Sulbactam Sodium IV 1208 Sodium Chloride 100 ML Heparin Sodium 5,000 UNIT Q8 01/21 2200 AC 01/22 (Porcine) ND 0554 Ibuprofen 600 MG TID PRN 01/22 1000 DC PO Ibuprofen 600 MG Q8P PRN 01/22 1000 AC PO Insulin Aspart 0 TIDAC/HS 01/22 1200 AC 01/22 ND 1124 Insulin Detemir 10 UNITS BID 01/22 1000 AC 01/22 ND 0948 Insulin Human Regular 100 UNIT Q24H 01/22 0930 DC Sodium Chloride 100 ML IV Insulin Human Regular 100 UNIT Q24H 01/21 1915 DC 01/21 Sodium Chloride 100 ML IV 1915 Insulin Human Regular 100 UNIT Q24H 01/21 1815 DC 01/21 Sodium Chloride 100 ML IV 1832 Insulin Human Regular 100 UNIT ONCE ONE 01/21 1615 DC / Sodium Chloride 100 ML IV 01/22 1714 1611 Insulin Human Regular 100 UNIT ONCE ONE 01/21 1230 DC 01/21 Sodium Chloride 100 ML IV 01/22 0246 1307 Insulin Human Regular 100 UNIT ONCE ONE 04/12 1200 CAN Sodium Chloride 100 ML IV 01/21 1201 Labetalol HCl 5 MG ONCE ONE 01/21 1445 DC / IV 01/21 1446 1446 Labetalol HCl 0 .STK-MED ONE 01/21 1441 DC IV Lorazepam 0 .STK-MED ONE 01/21 1441 DC .ROUTE Lorazepam 0.5 MG ONCE ONE 01/21 1430 DC 01/21 IV 01/21 1431 1446 Pantoprazole Sodium 40 MG DAILY 01/21 1827 AC 01/22 IV 0948 Phosphate 250 MG PC AND AT BEDTIME 01/22 1600 CAN PO Phosphate 250 MG ONCE ONE 01/22 1130 CAN PO 01/22 1131 Potassium Chloride 40 MEQ Q10H 01/22 0815 AC Dextrose/Sodium 1,000 ML IV Chloride Potassium Chloride 40 MEQ Q8H 01/21 1815 DC 01/22 Dextrose/Sodium 1,000 ML IV 0226 Chloride Potassium Chloride 10 MEQ ONCE ONE 01/21 1815 DC 01/21 IV 01/21 1816 2237 Potassium Chloride 20 MEQ Q8H 01/21 1630 DC Dextrose/Sodium 1,000 ML IV Chloride Potassium Chloride 20 MEQ Q4H 01/21 1545 DC Sodium Chloride 1,000 ML IV 01/22 0344 Potassium Chloride 10 MEQ Q1H 01/21 1500 DC / IV 01/21 1701 1946 Potassium Chloride 20 MEQ Q2H 01/21 1345 DC 01/21 Sodium Chloride 1,000 ML IV 01/21 1544 1412 Potassium Chloride 10 MEQ Q1H 01/21 1330 CAN IV 01/21 1431 Sodium Bicarbonate 75 MEQ Q13H 01/21 1300 DC 01/22 Sodium Chloride 1,000 ML IV 0226 Sodium Bicarbonate 100 MEQ Q6H 01/21 1230 DC 01/21 Dextrose/Water 1,000 ML IV 1231 Sodium Bicarbonate 100 MEQ ONCE ONE 01/21 1130 CAN Dextrose/Water 1,000 ML IV 01/21 1809 Sodium Chloride 1,000 ML Q2H 01/21 1300 CAN IV 01/21 1459 Vancomycin HCl 1,000 MG ONCE ONE 01/21 1230 DC 01/21 Sodium Chloride 250 ML IV 01/21 1329 1232 Vancomycin HCl 1,000 MG ONCE ONE 01/21 1228 CAN Sodium Chloride 250 ML IV 01/21 1229 Radiology Findings: SERVICE DATE: 01/21/17- EXAM TYPE: US - US-COMPLETE ABDOMEN IMPRESSION: Normal ultrasound of abdomen. DICTATED BY: ASHVIN MARIO MD HEAD CT And Neck CT IMPRESSION: Head: No acute intracranial pathology. Normal CT scan of the head. Neck: No soft tissue fluid collection or pathologic enhancement. No adenopathy. Right maxillary extraction tooth sockets. Mild mucosal thickening along the floor of the right maxillary antrum. DICTATED BY: CHRIS AVILEZ MD Impression/Plan Impression/Problem List Impression: Mrs. 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 Patient admitted to critical care unit for further management and closer monitoring. Problem List: #Diabetic ketoacidosis with severe acidosis pH of 6. Positive acetone. #Hypothermia #Leukocytosis due to DKA Freire day # 1: Discontinued Respiratory Saturating well 97 % on RA. Continue to monitor. Chest x-ray showed no consolidation or areas of focal infection. ID Although the patient received vancomycin in the emergency department, Begin Empiric IV Unasyn 3 g every [address] of head and neck to rule out any abscesses. Clear. Elevated WBC could be in the setting of acute infection/abcess or stress demargination. Patient is currently Hypothermic and has needed bear hugger support to ensure the patient's temperature reaches normal physiologicl limits. Target Temperature: 98.5-99.5. AST was elevated:45 Viral influenza Negative Rapid quick strep. Urine Cultures: Gram Negative Rods + GPC. Will await sensitivities. Cardiovascular Initial EKG did not show any ST segment changes or acute changes on EKG. If electrolytes remained deranged consider repeating EKG to monitor for any cardiac arrhythmia that may result from potential electrolyte derangements. Initial troponin was 0.05. Initial lactic acid was 8.8 however subsequent one was trended down to 6.1, repeat Lactic acid 2.4, additional Lactic Acid 17.00.. Continue monitoring lactic acid until trending within normal limits. Heme Current WBC on admission: 29.7-> 19.7.Thrombocythemia. Platelets 514-->399. Repeat CBC in AM Elevated WBC vidhya stress demargination due to DKA. Metabolic Metabolic Derangements in the setting of acute DKA. Blood sugar on admission 759. Insulin drip started started at 7 units per hour. Titrate to ensure rapid correction does not occur. Target blood sugar should be between 150 -180. Target Potassium is 4.5. Monitor finger sticks every hour. BEP every 2 hours. Once blood sugar reaches 250, Continue IV fluids D5 half-normal saline with 40 mEq 75 mL/hr. Patient started on Novolog Sliding Scale this am. Target BS 180. Monitor daily phosphrus and replete. Level 0.9. Neutraphos PO 250 mg. Check BEP every four hours to ensure electrolytes and AG remain WNL and AG is not increasing. Consider HbA1C add on for an indication of how the patient blood sugar has been maintained over the last three months. 17.4 Daily Weights. Ibuprofen 600 mg Q8 Started. Repeat BEP Q 4 hours for DKA Management. Alimentary Diet Advanced. BS to be checked hourly. Oral Hygiene. Nutritional Consult in AM. Nicotine patch PRN. Neurology Psych Consult and social consultation obtained in AM. The patient seems to have had a history of alcohol abuse. She also has a history of opiod depandance and there was mention of a trial of suboxone to wean her off opiod medications. Urines also positive for Benzodiazepine. Avoid any sedating medications overnight. Patient's claims that she has had a bad reaction to tramadol in the past whereby the patient seizes. Other Obtain medical records from Dentist Diet: CC2 IVF: Refer to Above DVT ppx ALPS + Heparin Sub Q Code Full Problem List: 1. Sepsis 2. DKA (diabetic ketoacidoses) Pain Ratin Pain Location: Abdominal Pain Tomorrow's Labs & Rationales: CBC BEP Plan DVT/Prophylaxis: pharmacological, early ambulation low risk
--- NOTE | 2017-01-22 08:09 | PN- Diabetes ---
Assessment/Plan Assessment: The patient feels much improved. She is awake and oriented and states she is somewhat hungry. Unfortunately we were not able to get any lab work during the night. Hr respiratory rate is normal and most likely the ketoacidosis has resolved. Plan: Suggest at this time that we discontinue the bicarbonate drip. Reduce the IV with D5 half-normal saline with 40 mEq KCl to 100 mL per hour. Continue the insulin drip at a rate that we'll keep her sugar at about 180. Every effort will be made to try her blood this morning and once the results are available we will be able to switch the patient to subcutaneous insulin. Subjective Subjective: feels improved Review of Systems Constitutional: Denies: chills, fever. Cardiovascular: Denies: chest pain. Respiratory: Denies: cough. Gastrointestinal: Denies: melena, vomiting. Skin: Reports: no symptoms. Objective Last 24 Hrs of Vital Signs/I&O BP110/70 Physical Exam General Appearance: alert, awake, comfortable, thin Head: normal appearance Neck: normal inspection Respiratory: normal breath sounds Cardiovascular: regular rate/rhythm Extremities: normal inspection
--- NOTE | 2017-01-22 08:50 | PN- CRCU ---
Subjective HPI/Critical Care Issues: The patient is awake and alert. She states she feels significantly improved. She is asking to go home. She was not able to have blood work overnight due to poor access. Her respiratory rate is now normal and she has no shortness of breath, chest pain , fever or chills. She has excellent urine output. She remains on a bicarbonate drip will be stopped this morning. She also remains on IV fluid resuscitation and an insulin drip. Objective Current Medications: Current Medications Sig/Philip Start time Last Medication Dose Route Stop Time Status Admin Ampicillin Sodium/ 3,000 MG Q6 01/21 1800 AC 01/22 Sulbactam Sodium IV 0553 Sodium Chloride 100 ML Ceftazidime 0 .STK-MED ONE 01/21 1136 DC .ROUTE Ceftazidime 1,000 MG ONCE ONE 01/21 1130 DC 01/21 IV 01/21 1131 1145 Heparin Sodium 5,000 UNIT Q8 01/21 2200 AC 01/22 (Porcine) SC 0554 Insulin Human Regular 100 UNIT Q24H 01/21 1915 AC 01/21 Sodium Chloride 100 ML IV 1915 Insulin Human Regular 100 UNIT Q24H 01/21 1815 DC 01/21 Sodium Chloride 100 ML IV 1832 Insulin Human Regular 100 UNIT ONCE ONE 01/21 1615 DC 01/21 Sodium Chloride 100 ML IV 01/22 1714 1611 Insulin Human Regular 100 UNIT ONCE ONE 01/21 1230 DC 01/21 Sodium Chloride 100 ML IV 01/22 0246 1307 Insulin Human Regular 100 UNIT ONCE ONE 01/21 1200 DC Sodium Chloride 100 ML IV 01/21 1201 Insulin Human Regular 100 UNIT ONCE ONE 01/21 1200 CAN Sodium Chloride 100 ML IV 01/21 1201 Insulin Human Regular 10 UNITS ONCE ONE 01/21 1115 DC / IV 01/21 1116 1129 Labetalol HCl 5 MG ONCE ONE 01/21 1445 DC / IV 01/21 1446 1446 Labetalol HCl 0 .STK-MED ONE 01/21 1441 DC IV Lorazepam 0 .STK-MED ONE 01/21 1441 DC .ROUTE Lorazepam 0.5 MG ONCE ONE 01/21 1430 DC / IV 01/21 1431 1446 Naloxone HCl 0 .STK-MED ONE 01/21 1140 DC .ROUTE Naloxone HCl 0.8 MG ONCE ONE 04/12 1130 DC 04/12 IV 01/21 1131 1202 Pantoprazole Sodium 40 MG DAILY 01/21 1827 AC 01/21 IV 2118 Potassium Chloride 40 MEQ Q10H 01/22 0815 AC Dextrose/Sodium 1,000 ML IV Chloride Potassium Chloride 40 MEQ Q8H 01/21 1815 DC 01/22 Dextrose/Sodium 1,000 ML IV 0226 Chloride Potassium Chloride 10 MEQ ONCE ONE 01/21 1815 DC / IV 01/21 1816 2237 Potassium Chloride 20 MEQ Q8H 01/21 1630 DC Dextrose/Sodium 1,000 ML IV Chloride Potassium Chloride 20 MEQ Q4H 01/21 1545 DC Sodium Chloride 1,000 ML IV 01/22 0344 Potassium Chloride 10 MEQ Q1H 01/21 1500 DC 01/21 IV 01/21 1701 1946 Potassium Chloride 20 MEQ Q2H 01/21 1345 DC 01/21 Sodium Chloride 1,000 ML IV 01/21 1544 1412 Potassium Chloride 10 MEQ Q1H 01/21 1330 CAN IV 01/21 1431 Sodium Bicarbonate 75 MEQ Q13H 01/21 1300 DC 01/22 Sodium Chloride 1,000 ML IV 0226 Sodium Bicarbonate 100 MEQ Q6H 01/21 1230 DC 01/21 Dextrose/Water 1,000 ML IV 1231 Sodium Bicarbonate 50 MEQ ONCE ONE 01/21 1130 DC / IV 01/21 1131 1202 Sodium Bicarbonate 100 MEQ ONCE ONE 01/21 1130 CAN Dextrose/Water 1,000 ML IV 01/21 1809 Sodium Chloride 1,000 ML Q2H 01/21 1300 CAN IV 01/21 1459 Sodium Chloride 1,000 ML BOLUS ONE 01/21 1115 DC 01/21 IV 01/21 1214 1030 Sodium Chloride 1,000 ML BOLUS ONE 01/21 1115 DC /12 IV 01/21 1214 1030 Vancomycin HCl 1,000 MG ONCE ONE 01/21 1230 DC 01/21 Sodium Chloride 250 ML IV 01/21 1329 1232 Vancomycin HCl 1,000 MG ONCE ONE 01/21 1228 CAN Sodium Chloride 250 ML IV 01/21 1229 Vancomycin HCl 0 .STK-MED ONE 01/21 1136 DC .ROUTE Vancomycin HCl 1,000 MG ONCE ONE 01/21 1130 DC Sodium Chloride 250 ML IV 01/21 1229 Vital Signs & I&O Last 24 Hrs of Vitals and I&O: Vital Signs Date Time Temp Pulse Resp B/P Pulse O2 O2 Flow FiO2 Ox Delivery Rate 01/22 0600 79 20 96/29 01/22 0400 98.0 85 18 112/64 01/22 0400 100 Room Air 01/22 0200 83 16 111/65 01/22 0000 97.1 87 18 110/60 01/22 0000 100 Room Air 01/22 0000 97.1 87 18 110/60 100 Room Air Room Air 01/21 2200 98.0 84 16 116/69 01/21 2000 97.8 90 16 116/78 01/21 1745 97.8 91 20 115/75 01/21 1745 100 Room Air 01/21 1618 98.0 90 24 148/70 100 Room Air Room Air 01/21 1603 98.1 91 20 127/77 100 Room Air Room Air 01/21 1557 100 Room Air Room Air 01/21 1505 96.8 80 22 119/78 100 Room Air 01/21 1448 96.4 78 20 109/62 100 Room Air 01/21 1446 112 175/101 01/21 1440 96.4 78 20 109/62 01/21 1415 95.7 112 22 175/101 100 Room Air Room Air 01/21 1345 94.6 116 20 172/105 100 Room Air Room Air 01/21 1315 93.9 112 25 192/104 100 Room Air Room Air 01/21 1217 93.6 103 22 167/86 100 Room Air Room Air 01/21 1148 93.0 97 24 173/94 100 Room Air Room Air 01/21 1115 93.6 96 25 159/87 96 Room Air Room Air 01/21 1102 100 Room Air Room Air 01/21 1015 94.3 98 25 164/106 100 Room Air Room Air Intake & Output 01/22 1600 01/22 0800 01/22 0000 Intake Total 2741 1492 Output Total 690 510 Balance 2051 982 Intake, IV 2741 1492 Output, Urine 690 510 Patient 114 lb Weight Physical Exam General Appearance Awake and alert, much more comfortable HEENT Pupils equal and reactive, poor dentition Cardiovascular Regular Rate, Normal S1, Normal S2, No Murmurs Lungs Clear to Auscultation Abdomen Normal Bowel Sounds, Soft, No Tenderness Extremities Warm and dry, no edema Results Last 24 Hrs of Lab Results: Laboratory Tests 01/22/17 0820: Sodium Pending, Potassium Pending, Chloride Pending, Carbon Dioxide Pending, Anion Gap Pending, BUN Pending, Creatinine Pending, BUN/Creatinine Ratio Pending , Troponin I Pending 01/22/17 0600: Sodium Cancelled, Potassium Cancelled, Chloride Cancelled, Carbon Dioxide Cancelled, Anion Gap Cancelled, BUN Cancelled, Creatinine Cancelled, BUN/ Creatinine Ratio Cancelled 01/21/17 2235: Lactic Acid 1.3 01/21/17 2235: Anion Gap 18 H, Estimated GFR > 60, BUN/Creatinine Ratio 15.0 01/21/17 1815: Lactic Acid 3.7 H 01/21/17 1815: Anion Gap 25 H, Estimated GFR > 60, BUN/Creatinine Ratio 18.3, Troponin I 0.11 *H 01/21/17 1604: Anion Gap 26 H, Estimated GFR > 60, BUN/Creatinine Ratio 15.7 01/21/17 1500: Sodium Cancelled, Potassium Cancelled, Chloride Cancelled, Carbon Dioxide Cancelled, Anion Gap Cancelled, BUN Cancelled, Creatinine Cancelled, BUN/ Creatinine Ratio Cancelled 01/21/17 1406: Lactic Acid 6.1 H 01/21/17 1406: Anion Gap , Estimated GFR > 60, BUN/Creatinine Ratio 13.8, Glucose 498 H, Amylase 65, Lipase 254 01/21/17 1115: Urine Opiates Screen < 100.00, Methadone Screen < 40, Barbiturate Screen < 60, Ur Phencyclidine Scrn < 6.00, Amphetamines Screen < 100, U Benzodiazepines Scrn 491 H, Urine Cocaine Screen < 50, Urine Cannabis Screen 13.70, Urinalysis LIGHT H, Urine Color YEL, Urine Clarity HAZY H, Urine pH 6.0, Ur Specific Sparks 1.025, Urine Protein 100 H, Urine Ketones >=80, Urine Nitrite NEG, Urine Bilirubin NEG, Urine Urobilinogen 0.2, Ur Leukocyte Esterase NEG, Ur Microscopic SEDIMENT EXAMINED, Urine RBC 3-5, Urine WBC RARE, Ur Epithelial Cells MOD H, Urine Bacteria FEW H, Granular Casts 3-5 H, Urine Hemoglobin MOD H, Urine Glucose >=1000 H 01/21/17 1038: CBC w Diff MAN DIFF ORDERED, RBC 4.54, MCV 93.9, MCH 30.8, RDW 17.5 H, MPV 8.4, Gran % 73.3, Lymphocytes % 21.5, Monocytes % 4.8, Eosinophils % 0.2, Basophils % 0.2, Absolute Granulocytes 21.8 H, Segmented Neutrophils 65, Band Neutrophils 7 H, Absolute Lymphocytes 6.4 H, Lymphocytes 21, Monocytes 3, Absolute Monocytes 1.4 H, Eosinophils 1, Absolute Eosinophils 0.1, Absolute Basophils 0.1, Metamyelocytes 3 H, Platelet Estimate INCREASED, Normocytic RBCs VERIFIED, Normochromic RBCs VERIFIED, PUBS MCHC 32.8 L 01/21/17 1030: Bicarbonate Actual 5 L, Mixed VBG pH 6.86 L, Mixed VBG pCO2 25 L, Mixed VBG O2 Saturation 35, Carboxyhemoglobin 0.8 L, O2 Concentration % RA, Anion Gap , Estimated GFR > 60, BUN/Creatinine Ratio 12.2, Glucose 759 *H, Lactic Acid 8.8 H, Calcium 10.4 H, Total Bilirubin 0.7, AST 45 H, ALT 24, Alkaline Phosphatase 194 H, Ammonia 40 H, Troponin I 0.05, Total Protein 8.1, Albumin 5.3 H, Globulin 2.8, Albumin/Globulin Ratio 1.9, Phlebotomy Draw Site VENOUS, Acetone Level POSITIVE AT 1:8 DIL Last 24 Hrs of Micro Results: All cultures are negative to date. Diagnostic Data CT Scan Findings: Head: No acute intracranial pathology. Normal CT scan of the head. Neck: No soft tissue fluid collection or pathologic enhancement. No adenopathy. Right maxillary extraction tooth sockets. Mild mucosal thickening along the floor of the right maxillary antrum. Impression/Plan Impression/Plan Impression/Plan: 1. Diabetic ketoacidosis, clinically improved. Repeat blood work is being attempted now. 2. Severe metabolic acidosis due to DKA. 3. Hypothermia, resolved. 4. Sepsis in the setting of recent teeth extractions, no evidence of abscess on CAT scan. 5. Electrolyte abnormalities. 6. Chronic pain. As per the patient, she has been off opiates and only takes meloxicam daily. 7. History of seizures related to medication, although this is unclear. The patient's reported the patient seized secondary to tramadol, however the patient states she has had a bad reaction/possible seizures to both Nucynta and Soma. 8. History of alcohol abuse. Recommendations: * Discontinue bicarbonate drip. * Decrease IV fluids to 100 ML per hour. * Continue insulin as recommended by endocrinology. * Follow up culture results. * Continue IV Unasyn as recommended by ID. * Follow-up morning blood work results. * We will advance diet once the a.m. blood work is available and the patient is switched to subcutaneous insulin. * Start meloxicam daily. * Agree with psychiatry and social service consult. * DVT prophylaxis at all times. * Discontinue one-to-one sitter. * Discontinue wrist restraints. * Discontinue Freire catheter. * Out of bed to chair. * If the patient's labs are improved and she is off the insulin drip, will downgrade to GEN med today.
--- NOTE | 2017-01-22 09:19 | PN- Att Addend ---
Attending Addendum Attending Brief Note Patient reports improved to pain with antibiotics. She does not have any other symptoms. General Appearance: Alert, No Acute Distress Skin: Grossly normal HEENT: PEERLA Neck: Supple, No JVD Cardiovascular: Regular Rate, Normal S1, Normal S2, No Murmurs Lungs: Clear to Auscultation, Normal Air Movement Abdomen: Normal Bowel Sounds, Soft, No Tenderness Neurological: Normal Speech, Strength at 5/5 X4 Ext, Cranial Nerves 3-12 NL, Reflexes 2+ Extremities: No Clubbing, No Cyanosis, No Edema Vascular: Normal Pulses Assessment 41-year-old female with history of chronic back pain, Sohail's thyroiditis, prediabetes presenting with complaints of toothache and generalized weakness with poor by mouth intake. She was found to be in DKA and a high leukocytosis without a fever. Chest x-ray, UA and ultrasound abdomen is negative. I suspect leukocytosis and hypothermia was in the setting of DKA however an occult source of infection cannot be completely excluded. CAT scan sinuses is negative for intraoral abscess. She is currently on Unasyn with improved pain and oral symptoms. At this point ID evaluation is pending. DKA has resolved and insulin management per endocrinology. Patient has benzo and marijuana in her urine tox. She reports taking few Xanax that was with her from before recently secondary to her illness. Plan Diabetic management per endocrinology Check hemoglobin A1c Continue antibiotics Follow blood cultures Continue supportive care DVT prophylaxis Current Medications Sig/Philip Start time Last Medication Dose Route Stop Time Status Admin Ampicillin Sodium/ 3,000 MG Q6 01/21 1800 AC 01/22 Sulbactam Sodium IV 0553 Sodium Chloride 100 ML Ceftazidime 0 .STK-MED ONE 01/21 1136 DC .ROUTE Ceftazidime 1,000 MG ONCE ONE 01/21 1130 DC 01/21 IV 01/21 1131 1145 Heparin Sodium 5,000 UNIT Q8 01/21 2200 AC 01/22 (Porcine) SC 0554 Insulin Human Regular 100 UNIT Q24H 01/22 0930 AC Sodium Chloride 100 ML IV Insulin Human Regular 100 UNIT Q24H 01/21 1915 DC 01/21 Sodium Chloride 100 ML IV 1915 Insulin Human Regular 100 UNIT Q24H 01/21 1815 DC 01/21 Sodium Chloride 100 ML IV 1832 Insulin Human Regular 100 UNIT ONCE ONE 01/21 1615 DC 01/21 Sodium Chloride 100 ML IV 01/22 1714 1611 Insulin Human Regular 100 UNIT ONCE ONE 01/21 1230 DC 04 Sodium Chloride 100 ML IV 01/22 0246 1307 Insulin Human Regular 100 UNIT ONCE ONE 01/21 1200 DC Sodium Chloride 100 ML IV 01/21 1201 Insulin Human Regular 100 UNIT ONCE ONE 01/21 1200 CAN Sodium Chloride 100 ML IV 01/21 1201 Insulin Human Regular 10 UNITS ONCE ONE 01/21 1115 DC 01/21 IV 01/21 1116 1129 Labetalol HCl 5 MG ONCE ONE 01/21 1445 DC 04/ IV 01/21 1446 1446 Labetalol HCl 0 .STK-MED ONE 01/21 1441 DC IV Lorazepam 0 .STK-MED ONE 01/21 1441 DC .ROUTE Lorazepam 0.5 MG ONCE ONE 01/21 1430 DC 01/21 IV 01/21 1431 1446 Naloxone HCl 0 .STK-MED ONE 01/21 1140 DC .ROUTE Naloxone HCl 0.8 MG ONCE ONE 01/21 1130 DC 01/21 IV 01/21 1131 1202 Pantoprazole Sodium 40 MG DAILY 01/21 1827 AC 01/21 IV 2118 Potassium Chloride 40 MEQ Q10H 01/22 0815 AC Dextrose/Sodium 1,000 ML IV Chloride Potassium Chloride 40 MEQ Q8H 01/21 1815 DC 01/22 Dextrose/Sodium 1,000 ML IV 0226 Chloride Potassium Chloride 10 MEQ ONCE ONE 01/21 1815 DC 01/21 IV 01/21 1816 2237 Potassium Chloride 20 MEQ Q8H 01/21 1630 DC Dextrose/Sodium 1,000 ML IV Chloride Potassium Chloride 20 MEQ Q4H 01/21 1545 DC Sodium Chloride 1,000 ML IV 01/22 0344 Potassium Chloride 10 MEQ Q1H 01/21 1500 DC 04 IV 01/21 1701 1946 Potassium Chloride 20 MEQ Q2H 01/21 1345 DC 01/21 Sodium Chloride 1,000 ML IV 01/21 1544 1412 Potassium Chloride 10 MEQ Q1H 01/21 1330 CAN IV 01/21 1431 Sodium Bicarbonate 75 MEQ Q13H 01/21 1300 DC 01/22 Sodium Chloride 1,000 ML IV 0226 Sodium Bicarbonate 100 MEQ Q6H 01/21 1230 DC 01/21 Dextrose/Water 1,000 ML IV 1231 Sodium Bicarbonate 50 MEQ ONCE ONE 01/21 1130 DC 01/21 IV 01/21 1131 1202 Sodium Bicarbonate 100 MEQ ONCE ONE 01/21 1130 CAN Dextrose/Water 1,000 ML IV 01/21 1809 Sodium Chloride 1,000 ML Q2H 01/21 1300 CAN IV 01/21 1459 Sodium Chloride 1,000 ML BOLUS ONE 01/21 1115 DC / IV 01/21 1214 1030 Sodium Chloride 1,000 ML BOLUS ONE 01/21 1115 DC 01/21 IV 01/21 1214 1030 Vancomycin HCl 1,000 MG ONCE ONE 01/21 1230 DC 01/21 Sodium Chloride 250 ML IV 01/21 1329 1232 Vancomycin HCl 1,000 MG ONCE ONE 01/21 1228 CAN Sodium Chloride 250 ML IV 01/21 1229 Vancomycin HCl 0 .STK-MED ONE 01/21 1136 DC .ROUTE Vancomycin HCl 1,000 MG ONCE ONE 01/21 1130 DC Sodium Chloride 250 ML IV 01/21 1229 Laboratory Tests 01/22 01/22 01/21 01/21 01/21 0820 0600 2235 2235 1815 Chemistry Sodium (137 - 145 mmol/L) 135 L Cancelled 136 L Potassium (3.5 - 5.1 mmol/L) 3.9 Cancelled 5.1 Chloride (98 - 107 mmol/L) 108 H Cancelled 109 H Carbon Dioxide (22 - 30 mmol/L) 11 L Cancelled 9 *L Anion Gap (5 - 16) 16 Cancelled 18 H BUN (7 - 17 mg/dL) 7 Cancelled 9 Creatinine (0.5 - 1.0 mg/dL) 0.5 Cancelled 0.6 Estimated GFR (>60 ml/min) > 60 > 60 BUN/Creatinine Ratio (7 - 25 %) 14.0 Cancelled 15.0 Lactic Acid (0.7 - 2.1 mmol/L) 1.3 3.7 H Troponin I (< 0.11 ng/ml) 0.09 01/21 01/21 01/21 01/21 01/21 1815 1604 1500 1406 1406 Chemistry Sodium (137 - 145 mmol/L) 142 144 Cancelled 143 Potassium (3.5 - 5.1 mmol/L) 3.0 L 3.1 L Cancelled 2.7 *L Chloride (98 - 107 mmol/L) 111 H 112 H Cancelled 106 Carbon Dioxide (22 - 30 mmol/L) 6 *L 6 *L Cancelled < 5 *L Anion Gap (5 - 16) 25 H 26 H Cancelled BUN (7 - 17 mg/dL) 11 11 Cancelled 11 Creatinine (0.5 - 1.0 mg/dL) 0.6 0.7 Cancelled 0.8 Estimated GFR (>60 ml/min) > 60 > 60 > 60 BUN/Creatinine Ratio (7 - 25 %) 18.3 15.7 Cancelled 13.8 Glucose (65 - 99 mg/dL) 498 H Lactic Acid (0.7 - 2.1 mmol/L) 6.1 H Troponin I (< 0.11 ng/ml) 0.11 *H Amylase (30 - 110 U/L) 65 Lipase (23 - 300 U/L) 254 01/21 01/21 1115 1038 Hematology CBC w Diff MAN DIFF ORDERED WBC (4.8 - 10.8 /CUMM) 29.7 H RBC (4.20 - 5.40 /CUMM) 4.54 Hgb (12.0 - 16.0 G/DL) 14.0 Hct (37 - 47 %) 42.6 MCV (81.0 - 99.0 FL) 93.9 MCH (27.0 - 31.0 PG) 30.8 RDW (11.5 - 14.5 %) 17.5 H Plt Count (130 - 400 /CUMM) 514 H MPV (7.4 - 10.4 FL) 8.4 Gran % (42.2 - 75.2 %) 73.3 Lymphocytes % (20.5 - 51.1 %) 21.5 Monocytes % (1.7 - 9.3 %) 4.8 Eosinophils % (0 - 5 %) 0.2 Basophils % (0.0 - 2.0 %) 0.2 Absolute Granulocytes (1.4 - 6.5 /CUMM) 21.8 H Segmented Neutrophils (42.2 - 75.2 %) 65 Band Neutrophils (0.0 - 5.0 %) 7 H Absolute Lymphocytes (1.2 - 3.4 /CUMM) 6.4 H Lymphocytes (20.5 - 51.1 %) 21 Monocytes (1.7 - 9.3 %) 3 Absolute Monocytes (0.10 - 0.60 /CUMM) 1.4 H Eosinophils (0 - 5.0 %) 1 Absolute Eosinophils (0.0 - 0.7 /CUMM) 0.1 Absolute Basophils (0.0 - 0.2 /CUMM) 0.1 Metamyelocytes (0.0 - 1.0 %) 3 H Platelet Estimate (ADEQUATE) INCREASED Normocytic RBCs VERIFIED Normochromic RBCs VERIFIED PUBS MCHC (33.0 - 37.0 G/DL) 32.8 L Toxicology Urine Opiates Screen (>2000 NG/ML) < 100.00 Methadone Screen (>300 NG/ML) < 40 Barbiturate Screen (>200 NG/ML) < 60 Ur Phencyclidine Scrn (>25 NG/ML) < 6.00 Amphetamines Screen (>1000 NG/ML) < 100 U Benzodiazepines Scrn (>200 NG/ML) 491 H Urine Cocaine Screen (>300 NG/ML) < 50 Urine Cannabis Screen (>50 NG/ML) 13.70 Urines Urinalysis LIGHT H Urine Color (YEL,AMB,STR) YEL Urine Clarity (CLEAR) HAZY H Urine pH (5.0 - 8.0) 6.0 Ur Specific [place] (1.001 - 1.035) 1.025 Urine Protein (NEG,<30 MG/DL) 100 H Urine Ketones (NEG) >=80 Urine Nitrite (NEG) NEG Urine Bilirubin (NEG) NEG Urine Urobilinogen (0.1 - 1.0 EU/dl) 0.2 Ur Leukocyte Esterase (NEG) NEG Ur Microscopic SEDIMENT EXAMINED Urine RBC (0 - 5 /HPF) 3-5 Urine WBC (0 - 2 /HPF) RARE Ur Epithelial Cells (NONE,FEW) MOD H Urine Bacteria (NEG/NONE) FEW H Granular Casts (NONE /LPF) 3-5 H Urine Hemoglobin (NEG) MOD H Urine Glucose (N MG/DL) >=1000 H 01/21 1030 Blood Gas Bicarbonate Actual (22 - 26 MEQ/L) 5 L Mixed VBG pH (7.31 - 7.41 PH) 6.86 L Mixed VBG pCO2 (41 - 51 TORR) 25 L Mixed VBG O2 Saturation (35 - 45 TORR) 35 Carboxyhemoglobin (1.5 - 5.0 %) 0.8 L O2 Concentration % RA Chemistry Sodium (137 - 145 mmol/L) 130 L Potassium (3.5 - 5.1 mmol/L) 3.9 Chloride (98 - 107 mmol/L) 93 L Carbon Dioxide (22 - 30 mmol/L) < 5 *L Anion Gap (5 - 16) BUN (7 - 17 mg/dL) 11 Creatinine (0.5 - 1.0 mg/dL) 0.9 Estimated GFR (>60 ml/min) > 60 BUN/Creatinine Ratio (7 - 25 %) 12.2 Glucose (65 - 99 mg/dL) 759 *H Lactic Acid (0.7 - 2.1 mmol/L) 8.8 H Calcium (8.4 - 10.2 mg/dL) 10.4 H Total Bilirubin (0.2 - 1.3 mg/dL) 0.7 AST (14 - 36 U/L) 45 H ALT (9 - 52 U/L) 24 Alkaline Phosphatase (<127 U/L) 194 H Ammonia (9 - 30 umol/L) 40 H Troponin I (< 0.11 ng/ml) 0.05 Total Protein (6.3 - 8.2 g/dL) 8.1 Albumin (3.5 - 5.0 g/dL) 5.3 H Globulin (1.9 - 4.2 gm/dL) 2.8 Albumin/Globulin Ratio (1.1 - 2.2 %) 1.9 Miscellaneous Phlebotomy Draw Site VENOUS Toxicology Acetone Level (NEGATIVE) POSITIVE AT 1:8 DIL Vital Signs Date Time Temp Pulse Resp B/P Pulse O2 O2 Flow FiO2 Ox Delivery Rate 01/22 0800 97.0 85 25 106/66 01/22 0800 97.0 86 20 120/70 96 Room Air 01/22 0600 79 20 96/29 01/22 0400 98.0 85 18 112/64 01/22 0400 100 Room Air 01/22 0200 83 16 111/65 01/22 0000 97.1 87 18 110/60 01/22 0000 100 Room Air 01/22 0000 97.1 87 18 110/60 100 Room Air Room Air 01/21 2200 98.0 84 16 116/69 01/21 2000 97.8 90 16 116/78 01/21 1745 97.8 91 20 115/75 01/21 1745 100 Room Air 01/21 1618 98.0 90 24 148/70 100 Room Air Room Air 01/21 1603 98.1 91 20 127/77 100 Room Air Room Air 01/21 1557 100 Room Air Room Air 01/21 1505 96.8 80 22 119/78 100 Room Air 01/21 1448 96.4 78 20 109/62 100 Room Air 01/21 1446 112 175/101 01/21 1440 96.4 78 20 109/62 01/21 1415 95.7 112 22 175/101 100 Room Air Room Air 01/21 1345 94.6 116 20 172/105 100 Room Air Room Air 01/21 1315 93.9 112 25 192/104 100 Room Air Room Air 01/21 1217 93.6 103 22 167/86 100 Room Air Room Air 01/21 1148 93.0 97 24 173/94 100 Room Air Room Air 01/21 1115 93.6 96 25 159/87 96 Room Air Room Air 01/21 1102 100 Room Air Room Air 01/21 1015 94.3 98 25 164/106 100 Room Air Room Air
--- NOTE | 2017-01-22 10:40 | PN- Infect Dx ---
Subjective Subjective: Afebrile. She feels well with no complaints at this time Objective Last 24 Hrs of Vital Signs/I&O Vital Signs Date Time Temp Pulse Resp B/P Pulse O2 O2 Flow FiO2 Ox Delivery Rate 01/22 1000 97.0 90 18 123/70 01/22 0800 97.0 85 25 106/66 01/22 0800 97.0 86 20 120/70 96 Room Air 01/22 0600 79 20 96/29 01/22 0400 98.0 85 18 112/64 01/22 0400 100 Room Air 01/22 0200 83 16 111/65 01/22 0000 97.1 87 18 110/60 01/22 0000 100 Room Air 01/22 0000 97.1 87 18 110/60 100 Room Air Room Air 01/21 2200 98.0 84 16 116/69 01/21 2000 97.8 90 16 116/78 01/21 1745 97.8 91 20 115/75 01/21 1745 100 Room Air 01/21 1618 98.0 90 24 148/70 100 Room Air Room Air 01/21 1603 98.1 91 20 127/77 100 Room Air Room Air 01/21 1557 100 Room Air Room Air 01/21 1505 96.8 80 22 119/78 100 Room Air 01/21 1448 96.4 78 20 109/62 100 Room Air 01/21 1446 112 175/101 01/21 1440 96.4 78 20 109/62 01/21 1415 95.7 112 22 175/101 100 Room Air Room Air 01/21 1345 94.6 116 20 172/105 100 Room Air Room Air 01/21 1315 93.9 112 25 192/104 100 Room Air Room Air 01/21 1217 93.6 103 22 167/86 100 Room Air Room Air 01/21 1148 93.0 97 24 173/94 100 Room Air Room Air 01/21 1115 93.6 96 25 159/87 96 Room Air Room Air 01/21 1102 100 Room Air Room Air Intake & Output 01/22 1600 01/22 0800 01/22 0000 Intake Total 2741 1492 Output Total 690 510 Balance 2051 982 Intake, IV 2741 1492 Output, Urine 690 510 Patient 114 lb Weight Physical Exam Other Physical Findings: She appears comfortable in no acute distress HEENT no obvious inflammation noted Neck supple with no adenopathy Lungs are clear Heart regular rhythm with no murmur Abdomen is soft, mildly tender on palpation over the right upper quadrant and epigastrium, with no guarding or rebound, positive bowel sounds Extremities no cyanosis, clubbing or edema Freire catheter is in place Results Last 24 Hours of Lab Results: Laboratory Tests 01/22 01/22 01/21 01/21 01/21 0820 0600 2235 2235 1815 Chemistry Sodium (137 - 145 mmol/L) 135 L Cancelled 136 L Potassium (3.5 - 5.1 mmol/L) 3.9 Cancelled 5.1 Chloride (98 - 107 mmol/L) 108 H Cancelled 109 H Carbon Dioxide (22 - 30 mmol/L) 11 L Cancelled 9 *L Anion Gap (5 - 16) 16 Cancelled 18 H BUN (7 - 17 mg/dL) 7 Cancelled 9 Creatinine (0.5 - 1.0 mg/dL) 0.5 Cancelled 0.6 Estimated GFR (>60 ml/min) > 60 > 60 BUN/Creatinine Ratio (7 - 25 %) 14.0 Cancelled 15.0 Lactic Acid (0.7 - 2.1 mmol/L) 1.3 3.7 H Troponin I (< 0.11 ng/ml) 0.09 01/21 01/21 01/21 01/21 01/21 1815 1604 1500 1406 1406 Chemistry Sodium (137 - 145 mmol/L) 142 144 Cancelled 143 Potassium (3.5 - 5.1 mmol/L) 3.0 L 3.1 L Cancelled 2.7 *L Chloride (98 - 107 mmol/L) 111 H 112 H Cancelled 106 Carbon Dioxide (22 - 30 mmol/L) 6 *L 6 *L Cancelled < 5 *L Anion Gap (5 - 16) 25 H 26 H Cancelled BUN (7 - 17 mg/dL) 11 11 Cancelled 11 Creatinine (0.5 - 1.0 mg/dL) 0.6 0.7 Cancelled 0.8 Estimated GFR (>60 ml/min) > 60 > 60 > 60 BUN/Creatinine Ratio (7 - 25 %) 18.3 15.7 Cancelled 13.8 Glucose (65 - 99 mg/dL) 498 H Lactic Acid (0.7 - 2.1 mmol/L) 6.1 H Troponin I (< 0.11 ng/ml) 0.11 *H Amylase (30 - 110 U/L) 65 Lipase (23 - 300 U/L) 254 01/21 01/21 1115 1038 Hematology CBC w Diff MAN DIFF ORDERED WBC (4.8 - 10.8 /CUMM) 29.7 H RBC (4.20 - 5.40 /CUMM) 4.54 Hgb (12.0 - 16.0 G/DL) 14.0 Hct (37 - 47 %) 42.6 MCV (81.0 - 99.0 FL) 93.9 MCH (27.0 - 31.0 PG) 30.8 RDW (11.5 - 14.5 %) 17.5 H Plt Count (130 - 400 /CUMM) 514 H MPV (7.4 - 10.4 FL) 8.4 Gran % (42.2 - 75.2 %) 73.3 Lymphocytes % (20.5 - 51.1 %) 21.5 Monocytes % (1.7 - 9.3 %) 4.8 Eosinophils % (0 - 5 %) 0.2 Basophils % (0.0 - 2.0 %) 0.2 Absolute Granulocytes (1.4 - 6.5 /CUMM) 21.8 H Segmented Neutrophils (42.2 - 75.2 %) 65 Band Neutrophils (0.0 - 5.0 %) 7 H Absolute Lymphocytes (1.2 - 3.4 /CUMM) 6.4 H Lymphocytes (20.5 - 51.1 %) 21 Monocytes (1.7 - 9.3 %) 3 Absolute Monocytes (0.10 - 0.60 /CUMM) 1.4 H Eosinophils (0 - 5.0 %) 1 Absolute Eosinophils (0.0 - 0.7 /CUMM) 0.1 Absolute Basophils (0.0 - 0.2 /CUMM) 0.1 Metamyelocytes (0.0 - 1.0 %) 3 H Platelet Estimate (ADEQUATE) INCREASED Normocytic RBCs VERIFIED Normochromic RBCs VERIFIED PUBS MCHC (33.0 - 37.0 G/DL) 32.8 L Toxicology Urine Opiates Screen (>2000 NG/ML) < 100.00 Methadone Screen (>300 NG/ML) < 40 Barbiturate Screen (>200 NG/ML) < 60 Ur Phencyclidine Scrn (>25 NG/ML) < 6.00 Amphetamines Screen (>1000 NG/ML) < 100 U Benzodiazepines Scrn (>200 NG/ML) 491 H Urine Cocaine Screen (>300 NG/ML) < 50 Urine Cannabis Screen (>50 NG/ML) 13.70 Urines Urinalysis LIGHT H Urine Color (YEL,AMB,STR) YEL Urine Clarity (CLEAR) HAZY H Urine pH (5.0 - 8.0) 6.0 Ur Specific [place] (1.001 - 1.035) 1.025 Urine Protein (NEG,<30 MG/DL) 100 H Urine Ketones (NEG) >=80 Urine Nitrite (NEG) NEG Urine Bilirubin (NEG) NEG Urine Urobilinogen (0.1 - 1.0 EU/dl) 0.2 Ur Leukocyte Esterase (NEG) NEG Ur Microscopic SEDIMENT EXAMINED Urine RBC (0 - 5 /HPF) 3-5 Urine WBC (0 - 2 /HPF) RARE Ur Epithelial Cells (NONE,FEW) MOD H Urine Bacteria (NEG/NONE) FEW H Granular Casts (NONE /LPF) 3-5 H Urine Hemoglobin (NEG) MOD H Urine Glucose (N MG/DL) >=1000 H Last 24 Hours of [place] Results: Blood cultures 2 January 21 negative Urine culture January 21 pending Rapid flu swab January 21 negative Recent Imaging Studies: CT of the head and neck January 21 right maxillary extraction tooth socket is visible with no fluid levels seen and with no evidence of any fluid collections Right upper quadrant ultrasound January 21 negative Assessment/Plan Impression: Improved with resolution of her ketoacidosis, with temperatures remaining normal on Unasyn, begun empirically for possible sepsis, with no obvious source identified now 3 weeks status post removal of several maxillary teeth, followed by a course of Clindamycin. Her CBC from today is pending, but her blood cultures remain negative. Suggestion: 1. Follow-up recent cultures 2. Remove Freire catheter 3. Continue Unasyn pending above
[2017-01-22 11:16] LABS: ABSOLUTE BASOPHIL COUNT 0.1 /CUMM (0.0-0.2); ABSOLUTE EOSINOPHIL COUNT 0.1 /CUMM (0.0-0.7); ABSOLUTE GRANULOCYTE CT 16.4 /CUMM (1.4-6.5); ABSOLUTE LYMPH COUNT 2.2 /CUMM (1.2-3.4); ABSOLUTE MONOCYTE COUNT 0.9 /CUMM (0.10-0.60); BASOPHIL % 0.4 % (0.0-2.0); EOSINOPHIL % 0.6 % (0-5); GRANULOCYTE % 83.1 % (42.2-75.2); MEAN CORPUSCULAR HGB 31.1 PG (27.0-31.0); MEAN CORPUSCULAR HGB CONC 33.7 G/DL (33.0-37.0); MEAN CORPUSCULAR VOLUME 92.4 FL (81.0-99.0); MEAN PLATELET VOLUME 8.3 FL (7.4-10.4); PLATELET COUNT 399 /CUMM (130-400); RBC DISTRIBUTION WIDTH 17.7 % (11.5-14.5); RED BLOOD CELL CT 4.65 /CUMM (4.20-5.40); WHITE BLOOD CELL COUNT 19.7 /CUMM (4.8-10.8)
--- NOTE | 2017-01-22 18:35 | Cons- Psychiatry ---
Psychiatric Consult Date of Consult: 01/22/17 Reason for Consult: Mood disturbance, rule out depression, rule out opioid dependence. History of Present Illness: As per H&P. Mrs. Michel is a 41-year-old female with past medical history of chronic back and right shoulder pain, Sohail's thyroiditis , who presented to the emergency department on 01/21/2017 after her felt that her clinical condition was deteriorating. As per history, the patient has a questionable history of Munchhausen syndrome. In the ER, it was noted that the patient was in diabetic ketoacidosis with severe acidosis and the pH of 6.8 and positive serum acetone. The patient had a dental procedure at the end of December 2016. Following the dental procedure where three of her upper first and second molars on the right were removed she was subsequently prescribed clindamycin. On Thursday01/18/2017 the patient experienced worsening pain at the site of her dental extractions and dysphagia for solids. Over the last 48 hours prior to admission the patient's clinical condition continued to deteriorate with the patient becoming more somnolent and less responsive. She has had a decrease in appetite and only has been able to tolerate PO soda, consuming up to a 12 pack of soda per day. She was admitted with diabetic ketoacidosis, with severe acidosis likely precipitated by an infection; hypothermia; leukocytosis; hyperkalemia. Allergies: Coded Allergies: tramadol (Intermediate, SEIZURES 01/21/17) Current Medications: Current Medications Sig/Philip Start time Last Medication Dose Route Stop Time Status Admin Ampicillin Sodium/ 3,000 MG Q6 01/21 1800 AC 01/22 Sulbactam Sodium IV 1208 Sodium Chloride 100 ML Heparin Sodium 5,000 UNIT Q8 01/21 2200 AC 01/22 (Porcine) SC 1551 Ibuprofen 600 MG TID PRN 01/22 1000 DC PO Ibuprofen 600 MG Q8P PRN 01/22 1000 AC PO Insulin Aspart 0 Q4 01/22 1800 AC SC Insulin Aspart 6 UNITS ONCE ONE 01/22 1545 DC 01/22 SC 01/22 1546 1604 Insulin Aspart 7 UNITS ONCE ONE 01/22 1530 CAN SC 01/22 1531 Insulin Aspart 0 TIDAC/HS 01/22 1200 DC 01/22 FL 1124 Insulin Detemir 10 UNITS BID 01/22 1000 AC 01/22 SC 0948 Insulin Human Regular 100 UNIT Q24H 01/22 0930 DC Sodium Chloride 100 ML IV Insulin Human Regular 100 UNIT Q24H 01/21 1915 DC 01/21 Sodium Chloride 100 ML IV 1915 Insulin Human Regular 100 UNIT Q24H 01/21 1815 DC 01/21 Sodium Chloride 100 ML IV 1832 Insulin Human Regular 100 UNIT ONCE ONE 01/21 1615 DC 01/21 Sodium Chloride 100 ML IV 01/22 1714 1611 Pantoprazole Sodium 40 MG DAILY 01/21 1827 AC 01/22 IV 0948 Phosphate 250 MG PC AND AT BEDTIME 01/22 1800 CAN PO Phosphate 250 MG PC AND AT BEDTIME 01/22 1600 CAN PO Phosphate 250 MG ONCE ONE 01/22 1545 DC 01/22 PO 01/22 1546 1604 Phosphate 250 MG ONCE ONE 01/22 1130 CAN PO 01/22 1131 Potassium Chloride 40 MEQ Q13H 01/22 1545 AC 01/22 Dextrose/Sodium 1,000 ML IV 1552 Chloride Potassium Chloride 20 MEQ Q13H 01/22 1530 CAN Dextrose/Sodium 1,000 ML IV Chloride Potassium Chloride 40 MEQ Q10H 01/22 0815 DC Dextrose/Sodium 1,000 ML IV Chloride Potassium Chloride 40 MEQ Q8H 01/21 1815 DC 01/22 Dextrose/Sodium 1,000 ML IV 0226 Chloride Potassium Chloride 10 MEQ ONCE ONE 01/21 1815 DC 01/21 IV 01/21 1816 2237 Potassium Chloride 20 MEQ Q8H 01/21 1630 DC Dextrose/Sodium 1,000 ML IV Chloride Sodium Bicarbonate 75 MEQ Q13H 01/21 1300 DC 01/22 Sodium Chloride 1,000 ML IV 0226 Past History Past Medical History Musculoskeletal: chronic back pain Psychiatric: depression Endocrine: Sohail's thyroiditis Blood Disorders: Hx of Toxic Shock Syndrome Past Surgical History Surgical History: Right Shoulder Procedure. Psychosocial History Strengths/Capabilities: "I take care of my family. I have strong common sense." Psychiatric Treatment History Psych Treatment Psychiatric Treatment Yes Inpatient Treatment No (Denies) Reason for Treatment Patient states "Depression and Anxiety." Response to Treatment "Psych meds don't work for me. It's not in my head. The meds destroyed my brain. " Diagnosis: Generalized Anxiety d/o. Rule out depression. Rule out mood disorder. Rule out personality disorder. Risk Factors: chronic/serious med cond., high anxiety/distress Substance Use/Abuse History Drug Use/Abuse Substances Used/Abused Yes (Rx pain medications, suboxone) Substance Used/Abused Prescribed Opiates Substance Abuse Treatment Substance Abuse Treatment Past Substance Abuse [place] No Assessment/Plan Mental Status Orientation: Person, Place, Situation Affect: Anxious, Angry, Sad Speech: WNL Neuro-vegetative: WNL Mental Status Exam: Depression:2/10; Anxiety:2/10 (with 10 the worst.) Denies suicidal ideation, homicidal ideation, auditory hallucinations, visual hallucinations, paranoid ideation. Patient states and also believes that she will not kill herself. Patient denies paranoid ideation, however states that she often gets nervous when she is in a crowd. She reports history of panic attacks, approximately once every month or two. States that her triggers include being in a crowded place with a lot of people. She begins to hyperventilate, has difficulty breathing. States she is usually able to control it. Speech is well articulated, goal-directed, average in rate, volume and tone. Cooperative. Alert and oriented 3. Limited insight. Poor judgment. Lab Results: Laboratory Tests 01/22 01/22 01/22 1740 1415 1058 Chemistry Sodium (137 - 145 mmol/L) Pending 133 L Potassium (3.5 - 5.1 mmol/L) Pending 3.7 Chloride (98 - 107 mmol/L) Pending 103 Carbon Dioxide (22 - 30 mmol/L) Pending 9 *L Anion Gap (5 - 16) Pending 21 H BUN (7 - 17 mg/dL) Pending 5 L Creatinine (0.5 - 1.0 mg/dL) Pending 0.5 Estimated GFR (>60 ml/min) > 60 BUN/Creatinine Ratio (7 - 25 %) Pending 10.0 Lactic Acid Pending Phosphorus (2.5 - 4.5 mg/dL) 0.9 *L Hematology CBC w Diff MAN DIFF ORDERED WBC (4.8 - 10.8 /CUMM) 19.7 H RBC (4.20 - 5.40 /CUMM) 4.65 Hgb (12.0 - 16.0 G/DL) 14.5 Hct (37 - 47 %) 43.0 MCV (81.0 - 99.0 FL) 92.4 MCH (27.0 - 31.0 PG) 31.1 H RDW (11.5 - 14.5 %) 17.7 H Plt Count (130 - 400 /CUMM) 399 MPV (7.4 - 10.4 FL) 8.3 Gran % (42.2 - 75.2 %) 83.1 H Lymphocytes % (20.5 - 51.1 %) 11.1 L Monocytes % (1.7 - 9.3 %) 4.8 Eosinophils % (0 - 5 %) 0.6 Basophils % (0.0 - 2.0 %) 0.4 Absolute Granulocytes (1.4 - 6.5 /CUMM) 16.4 H Segmented Neutrophils (42.2 - 75.2 %) 77 H Band Neutrophils (0.0 - 5.0 %) 8 H Absolute Lymphocytes (1.2 - 3.4 /CUMM) 2.2 Lymphocytes (20.5 - 51.1 %) 13 L Monocytes (1.7 - 9.3 %) 2 Absolute Monocytes (0.10 - 0.60 /CUMM) 0.9 H Absolute Eosinophils (0.0 - 0.7 /CUMM) 0.1 Absolute Basophils (0.0 - 0.2 /CUMM) 0.1 Platelet Estimate (ADEQUATE) VERIFIED BY SMEAR Anisocytosis 1+ PUBS MCHC (33.0 - 37.0 G/DL) 33.7 Toxicology Acetone Level (NEGATIVE) Pending ND 01/22 01/22 01/22 01/22 01/21 1055 0820 0600 0600 2235 Chemistry Sodium (137 - 145 mmol/L) 135 L Cancelled Potassium (3.5 - 5.1 mmol/L) 3.9 Cancelled Chloride (98 - 107 mmol/L) 108 H Cancelled Carbon Dioxide (22 - 30 mmol/L) 11 L Cancelled Anion Gap (5 - 16) 16 Cancelled BUN (7 - 17 mg/dL) 7 Cancelled Creatinine (0.5 - 1.0 mg/dL) 0.5 Cancelled Estimated GFR (>60 ml/min) > 60 BUN/Creatinine Ratio (7 - 25 %) 14.0 Cancelled Hemoglobin A1c (4.2 - 5.8 %) 17.8 H Lactic Acid (0.7 - 2.1 mmol/L) 2.4 H 1.3 Phosphorus (2.5 - 4.5 mg/dL) 0.9 *L Troponin I (< 0.11 ng/ml) 0.09 04/12 04/12 04/12 04/12 04/12 2235 1815 1815 1604 1500 Chemistry Sodium (137 - 145 mmol/L) 136 L 142 144 Cancelled Potassium (3.5 - 5.1 mmol/L) 5.1 3.0 L 3.1 L Cancelled Chloride (98 - 107 mmol/L) 109 H 111 H 112 H Cancelled Carbon Dioxide (22 - 30 mmol/L) 9 *L 6 *L 6 *L Cancelled Anion Gap (5 - 16) 18 H 25 H 26 H Cancelled BUN (7 - 17 mg/dL) 9 11 11 Cancelled Creatinine (0.5 - 1.0 mg/dL) 0.6 0.6 0.7 Cancelled Estimated GFR (>60 ml/min) > 60 > 60 > 60 BUN/Creatinine Ratio (7 - 25 %) 15.0 18.3 15.7 Cancelled Lactic Acid (0.7 - 2.1 mmol/L) 3.7 H Troponin I (< 0.11 ng/ml) 0.11 *H 01/21 01/21 01/21 1406 1406 1115 Chemistry Sodium (137 - 145 mmol/L) 143 Potassium (3.5 - 5.1 mmol/L) 2.7 *L Chloride (98 - 107 mmol/L) 106 Carbon Dioxide (22 - 30 mmol/L) < 5 *L Anion Gap (5 - 16) BUN (7 - 17 mg/dL) 11 Creatinine (0.5 - 1.0 mg/dL) 0.8 Estimated GFR (>60 ml/min) > 60 BUN/Creatinine Ratio (7 - 25 %) 13.8 Glucose (65 - 99 mg/dL) 498 H Lactic Acid (0.7 - 2.1 mmol/L) 6.1 H Amylase (30 - 110 U/L) 65 Lipase (23 - 300 U/L) 254 Toxicology Urine Opiates Screen (>2000 NG/ML) < 100.00 Methadone Screen (>300 NG/ML) < 40 Barbiturate Screen (>200 NG/ML) < 60 Ur Phencyclidine Scrn (>25 NG/ML) < 6.00 Amphetamines Screen (>1000 NG/ML) < 100 U Benzodiazepines Scrn (>200 NG/ML) 491 H Urine Cocaine Screen (>300 NG/ML) < 50 Urine Cannabis Screen (>50 NG/ML) 13.70 Urines Urinalysis LIGHT H Urine Color (YEL,AMB,STR) YEL Urine Clarity (CLEAR) HAZY H Urine pH (5.0 - 8.0) 6.0 Ur Specific [place] (1.001 - 1.035) 1.025 Urine Protein (NEG,<30 MG/DL) 100 H Urine Ketones (NEG) >=80 Urine Nitrite (NEG) NEG Urine Bilirubin (NEG) NEG Urine Urobilinogen (0.1 - 1.0 EU/dl) 0.2 Ur Leukocyte Esterase (NEG) NEG Ur Microscopic SEDIMENT EXAMINED Urine RBC (0 - 5 /HPF) 3-5 Urine WBC (0 - 2 /HPF) RARE Ur Epithelial Cells (NONE,FEW) MOD H Urine Bacteria (NEG/NONE) FEW H Granular Casts (NONE /LPF) 3-5 H Urine Hemoglobin (NEG) MOD H Urine Glucose (N MG/DL) >=1000 H 01/21 [facility] Hematology CBC w Diff MAN DIFF ORDERED WBC (4.8 - 10.8 /CUMM) 29.7 H RBC (4.20 - 5.40 /CUMM) 4.54 Hgb (12.0 - 16.0 G/DL) 14.0 Hct (37 - 47 %) 42.6 MCV (81.0 - 99.0 FL) 93.9 MCH (27.0 - 31.0 PG) 30.8 RDW (11.5 - 14.5 %) 17.5 H Plt Count (130 - 400 /CUMM) 514 H MPV (7.4 - 10.4 FL) 8.4 Gran % (42.2 - 75.2 %) 73.3 Lymphocytes % (20.5 - 51.1 %) 21.5 Monocytes % (1.7 - 9.3 %) 4.8 Eosinophils % (0 - 5 %) 0.2 Basophils % (0.0 - 2.0 %) 0.2 Absolute Granulocytes (1.4 - 6.5 /CUMM) 21.8 H Segmented Neutrophils (42.2 - 75.2 %) 65 Band Neutrophils (0.0 - 5.0 %) 7 H Absolute Lymphocytes (1.2 - 3.4 /CUMM) 6.4 H Lymphocytes (20.5 - 51.1 %) 21 Monocytes (1.7 - 9.3 %) 3 Absolute Monocytes (0.10 - 0.60 /CUMM) 1.4 H Eosinophils (0 - 5.0 %) 1 Absolute Eosinophils (0.0 - 0.7 /CUMM) 0.1 Absolute Basophils (0.0 - 0.2 /CUMM) 0.1 Metamyelocytes (0.0 - 1.0 %) 3 H Platelet Estimate (ADEQUATE) INCREASED Normocytic RBCs VERIFIED Normochromic RBCs VERIFIED PUBS MCHC (33.0 - 37.0 G/DL) 32.8 L 01/21 1030 Blood Gas Bicarbonate Actual (22 - 26 MEQ/L) 5 L Mixed VBG pH (7.31 - 7.41 PH) 6.86 L Mixed VBG pCO2 (41 - 51 TORR) 25 L Mixed VBG O2 Saturation (35 - 45 TORR) 35 Carboxyhemoglobin (1.5 - 5.0 %) 0.8 L O2 Concentration % RA Chemistry Sodium (137 - 145 mmol/L) 130 L Potassium (3.5 - 5.1 mmol/L) 3.9 Chloride (98 - 107 mmol/L) 93 L Carbon Dioxide (22 - 30 mmol/L) < 5 *L Anion Gap (5 - 16) BUN (7 - 17 mg/dL) 11 Creatinine (0.5 - 1.0 mg/dL) 0.9 Estimated GFR (>60 ml/min) > 60 BUN/Creatinine Ratio (7 - 25 %) 12.2 Glucose (65 - 99 mg/dL) 759 *H Lactic Acid (0.7 - 2.1 mmol/L) 8.8 H Calcium (8.4 - 10.2 mg/dL) 10.4 H Total Bilirubin (0.2 - 1.3 mg/dL) 0.7 AST (14 - 36 U/L) 45 H ALT (9 - 52 U/L) 24 Alkaline Phosphatase (<127 U/L) 194 H Ammonia (9 - 30 umol/L) 40 H Troponin I (< 0.11 ng/ml) 0.05 Total Protein (6.3 - 8.2 g/dL) 8.1 Albumin (3.5 - 5.0 g/dL) 5.3 H Globulin (1.9 - 4.2 gm/dL) 2.8 Albumin/Globulin Ratio (1.1 - 2.2 %) 1.9 Miscellaneous Phlebotomy Draw Site VENOUS Toxicology Acetone Level (NEGATIVE) POSITIVE AT 1:8 DIL Microbiology 01/21 1745 UPPER RESP: Surveillance Culture - RECD 01/21 1745 GI: Surveillance Culture - RECD 01/21 1550 NASOPHARYN: Influenza Virus A & B Rapid Smear - COMP 01/21 1230 BLOOD: Blood Culture - RES 01/21 1155 LOWER RESP: Respiratory Culture - ORD 01/21 1155 LOWER RESP: Gram Stain - ORD 01/21 1145 BLOOD: Blood Culture - RES 01/21 1115 URINE ROUT: Urine Culture - RES GRAM NEGATIVE RODS GRAM POSITIVE COCCI Diffential Diagnosis: Generalized Anxiety d/o. Rule out depression. Rule out mood disorder. Rule out personality disorder. Impression: This is a 41-year-old woman, who lives with her and 2 children ages 20 and 13. She also has 1 stepdaughter, age 17, who often visits at their home. She reports that she has a good and supportive relationship with her . Her is currently laid-off of his job, working with computers. 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. She reports a distant history of psychiatric care at the [facility] in [place], [place], however is unable to remember details of her treatment at this time. States that she had been treated by orthopedics for pain, eventually becoming dependent on opioids. She had been on Suboxone therapy, until 3 years ago. She denies any substance abuse currently. She denies depression. She does however report that anxiety is a problem, which is accompanied by panic attacks once every month or so. States that she would like to see a psychiatrist on an outpatient basis. The client declines psychiatric medication at this time, stating that she just wants medication to take when she is feeling the panic attack. I offered the possibility of attending IOP prior to outpatient treatment. At this time she is reticent to participate in IOP level of care, but would welcome an appointment to see outpatient psychiatry. Provisional Treatment Plan: Patient declined psychiatric medication. She has however set that she would like to follow up with outpatient psychiatry. After medical discharge, patient should be referred to Intensive Outpatient Program, if she will accept that level of care. Otherwise we should consider a referral to an outpatient psychiatric provider, which she has said she would prefer.
[2017-01-23] VITALS: BP 104/60
[2017-01-23 04:00] VITALS: BP 120/70
[2017-01-23 05:33] LABS: ABSOLUTE BASOPHIL COUNT 0.1 /CUMM (0.0-0.2); ABSOLUTE EOSINOPHIL COUNT 0.1 /CUMM (0.0-0.7); ABSOLUTE GRANULOCYTE CT 9.3 /CUMM (1.4-6.5); BASOPHIL % 0.8 % (0.0-2.0); EOSINOPHIL % 0.8 % (0-5); GRANULOCYTE % 68.7 % (42.2-75.2); MEAN CORPUSCULAR HGB 31.6 PG (27.0-31.0); MEAN CORPUSCULAR HGB CONC 34.1 G/DL (33.0-37.0); MEAN CORPUSCULAR VOLUME 92.7 FL (81.0-99.0); MEAN PLATELET VOLUME 9.2 FL (7.4-10.4); PLATELET COUNT 325 /CUMM (130-400); RBC DISTRIBUTION WIDTH 18.4 % (11.5-14.5); RED BLOOD CELL CT 3.87 /CUMM (4.20-5.40); WHITE BLOOD CELL COUNT 13.5 /CUMM (4.8-10.8)
[2017-01-23 05:34] LABS: HEMATOCRIT 35.9 % (37-47)
[2017-01-23 06:00] VITALS: BP 108/74
--- NOTE | 2017-01-23 06:43 | PN- Resident CRCU ---
Subjective HPI/CRCU Issues: Ms Michel was seen and examined this morning. She is resting comfortably in the chair beside her bed. She endorses no complaints overnight. She does state that she has had occasional dysphagia. She likely attributes this to the multiple large pills that she attempted to swallow yesterday owing to her hypokalemia. Overnight the patient states that she was able to get some rest up until about 4 AM this morning. She denies any fever, chills, nausea, vomiting. She denies any facial and/or maxillary pain. Tolerating PO intake well. Objective Vital Signs & I&O Last 8 Hrs of Vitals and I&O: Intake & Output 01/23 0800 Intake Total 1250 Output Total 1000 Balance 250 Intake, IV 1050 Intake, Oral 200 Output, Urine 1000 Exam General Appearance: well developed/nourished, no apparent distress, alert, awake Head: atraumatic Ears, Nose, Throat: normal ENT inspection, moist mucus membranes Neck: normal inspection, supple Respiratory: normal breath sounds, chest non-tender, no respiratory distress Cardiovascular: regular rate/rhythm Gastrointestinal: normal bowel sounds, soft, non-tender Extremities: normal inspection, normal capillary refill Cranial Nerves: normal hearing, normal speech Current Medications: Current Medications Sig/Philip Start time Last Medication Dose Route Stop Time Status Admin Ampicillin Sodium/ 3,000 MG Q6 01/21 1800 AC 01/23 Sulbactam Sodium IV 0524 Sodium Chloride 100 ML Heparin Sodium 5,000 UNIT Q8 01/21 2200 AC 01/23 (Porcine) SC 0524 Ibuprofen 600 MG TID PRN 01/22 1000 DC PO Ibuprofen 600 MG Q8P PRN 01/22 1000 AC PO Insulin Aspart 0 TIDAC/HS 01/22 2100 AC SC Insulin Aspart 0 Q4 01/22 1800 DC SC Insulin Aspart 6 UNITS ONCE ONE 01/22 1545 DC 01/22 SC 01/22 1546 1604 Insulin Aspart 7 UNITS ONCE ONE 01/22 1530 CAN SC 01/22 1531 Insulin Aspart 0 TIDAC/HS 01/22 1200 DC 01/22 SC 1124 Insulin Detemir 6 UNITS BID 01/22 2200 AC SC Insulin Detemir 10 UNITS BID 01/22 1000 DC 01/22 SC 0948 Insulin Human Regular 100 UNIT Q24H 01/22 0930 DC Sodium Chloride 100 ML IV Insulin Human Regular 100 UNIT Q24H 01/21 1915 DC 01/21 Sodium Chloride 100 ML IV 1915 Pantoprazole Sodium 40 MG DAILY 01/21 1827 AC 01/22 IV 0948 Phosphate 250 MG PC AND AT BEDTIME 01/22 1800 CAN PO Phosphate 250 MG PC AND AT BEDTIME 01/22 1600 CAN PO Phosphate 250 MG ONCE ONE 01/22 1545 DC 01/22 PO 01/22 1546 1604 Phosphate 250 MG ONCE ONE 01/22 1130 CAN PO 01/22 1131 Potassium Chloride 20 MEQ ONCE ONE 01/23 0645 CAN PO 01/23 0646 Potassium Chloride 40 MEQ ONCE ONE 01/23 0630 DC 01/23 PO 01/23 0631 0640 Potassium Chloride 40 MEQ ONCE ONE 01/23 0600 CAN PO 01/23 0601 Potassium Chloride 40 MEQ Q13H 01/22 2215 AC 01/22 Dextrose/Sodium 1,000 ML IV 01/23 1114 2328 Chloride Potassium Chloride 40 MEQ ONCE ONE 01/22 2000 DC PO 01/22 2001 Potassium Chloride 20 MEQ ONCE ONE 01/22 1930 DC 01/22 PO 01/22 1931 1928 Potassium Chloride 20 MEQ ONCE ONE 01/22 1930 DC 01/22 PO 01/22 1931 1928 Potassium Chloride 40 MEQ ONCE ONE 01/22 1845 CAN PO 01/22 1846 Potassium Chloride 40 MEQ Q13H 01/22 1545 DC 01/22 Dextrose/Sodium 1,000 ML IV 01/22 2200 1552 Chloride Potassium Chloride 20 MEQ Q13H 01/22 1530 CAN Dextrose/Sodium 1,000 ML IV Chloride Potassium Chloride 40 MEQ Q10H 01/22 0815 DC Dextrose/Sodium 1,000 ML IV Chloride Potassium Chloride 40 MEQ Q8H 01/21 1815 DC 01/22 Dextrose/Sodium 1,000 ML IV 0226 Chloride Potassium Phosphate 15 mMol ONE ONE 01/22 2315 DC 01/23 Sodium Chloride 250 ML IV 01/23 0318 0042 Sodium Bicarbonate 75 MEQ Q13H 01/21 1300 DC 01/22 Sodium Chloride 1,000 ML IV 0226 Impression/Plan Impression/Problem List Impression: Mrs. 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 Patient admitted to critical care unit for further management and closer monitoring. Problem List: #Diabetic ketoacidosis with severe acidosis pH of 6. Positive acetone. #Hypotension #Leukocytosis due to DKA : Discontinued Respiratory Saturating well 97 % on RA. Continue to monitor. Chest x-ray showed no consolidation or areas of focal infection. ID Although the patient received vancomycin in the emergency department, Begin Empiric IV Unasyn 3 g every 6 hours, last dose given am 01/23/2017. Discontinued. Will continue to monitor Off ABX. CT of head and neck to rule out any abscesses. Clear. Elevated WBC could be in the setting of acute infection/abcess or stress demargination. Patient is currently Hypothermic and has needed bear hugger support to ensure the patient's temperature reaches normal physiologicl limits. Target Temperature: 98.5-99.5. AST was elevated:45 Viral influenza Negative Rapid quick strep. Urine Cultures: Gram Negative Rods + GPC. Will await sensitivities, likely contaminant. Cardiovascular Initial EKG did not show any ST segment changes or acute changes on EKG. If electrolytes remained deranged consider repeating EKG to monitor for any cardiac arrhythmia that may result from potential electrolyte derangements. Initial troponin was 0.05. Initial lactic acid was 8.8 however subsequent one was trended down to 6.1, repeat Lactic acid 2.4, additional Lactic Acid --> 1.6 Continue monitoring lactic acid until trending within normal limits. Heme Current WBC on admission: 29.7-> 19.7-->13.5. Thrombocythemia. Platelets 514--> 399. Repeat CBC in AM Elevated WBC likley stress demargination due to DKA. Metabolic Overnight the patient was hypoglycemic lowest level reached was 88. This am, BS: 187 and 220. She has been covered with Novolog. She was continued on her D5 1 half normal saline rate of 75 mL per hour. Metabolic Derangements in the setting of acute DKA. Blood sugar on admission 759. Insulin drip started started at 7 units per hour. Titrate to ensure rapid correction does not occur. Target blood sugar should be between 150 -180. Target Potassium is 4.5. Monitor finger sticks every hour. BEP every 2 hours. Once blood sugar reaches 250, Continue IV fluids D5 half-normal saline with 40 mEq 75 mL/hr, patient had to be continued on IV d51/2 NS overnight. Patient started on Novolog Sliding Scale this am. Target BS 180. Monitor daily phosphrus and replete. Level 0.9. Neutraphos PO 250 mg, given once. Check BEP every four hours to ensure electrolytes and AG remain WNL and AG is not increasing. Consider HbA1C add on for an indication of how the patient blood sugar has been maintained over the last three months. 17.4 Daily Weights. Ibuprofen 600 mg Q8 Continue. Patient started on Levothyroxine given elvated TSH and Low F T4. Repeat TFT and BEP to be done as outpatient and recults cc'd to Endocirnologist. Alimentary Diet Advanced. BS to be checked hourly. Oral Hygiene. Nutritional Consult in AM. Nicotine patch PRN. Neurology Psych Consult Obtained. Patient will follow up with Outpatient psychiatry. A referral will be given prior to discharge. The patient seems to have had a history of alcohol abuse. She also has a history of opiod depandance and there was mention of a trial of suboxone to wean her off opiod medications. Urines also positive for Benzodiazepine. Avoid any sedating medications overnight. Patient's claims that she has had a bad reaction to tramadol in the past whereby the patient seizes. Other Obtain medical records from Dentist Diet: CC2 IVF: Refer to Above DVT ppx ALPS + Heparin Sub Q Code Full Problem List: 1. Sepsis 2. DKA (diabetic ketoacidoses) 3. Toothache Pain Ratin Tomorrow's Labs & Rationales: CBC ICU Bundle Plan DVT/Prophylaxis: pharmacological, early ambulation low risk
[2017-01-23 08:00] VITALS: BP 98/74
--- NOTE | 2017-01-23 09:23 | PN- Att Addend ---
Attending Addendum Attending Brief Note Patient reports improved to pain with antibiotics. She does not have any other symptoms. General Appearance: Alert, No Acute Distress Skin: Grossly normal HEENT: PEERLA Neck: Supple, No JVD Cardiovascular: Regular Rate, Normal S1, Normal S2, No Murmurs Lungs: Clear to Auscultation, Normal Air Movement Abdomen: Normal Bowel Sounds, Soft, No Tenderness Neurological: Normal Speech, Strength at 5/5 X4 Ext, Cranial Nerves 3-12 NL, Reflexes 2+ Extremities: No Clubbing, No Cyanosis, No Edema Vascular: Normal Pulses Assessment Blood sugars have improved in DKA resolved. Patient is stable clinically and we will switch her antibiotic to Augmentin for total 10 days. In the meantime we' ll defer management of diabetes to endocrinology. Plan Diabetic management per endocrinology Change to Augmentin for total 10 days Continue supportive care Stable for discharge once cleared by endocrinology Current Medications Sig/Philip Start time Last Medication Dose Route Stop Time Status Admin Ampicillin Sodium/ 3,000 MG Q6 01/21 1800 AC 01/23 Sulbactam Sodium IV 0524 Sodium Chloride 100 ML Heparin Sodium 5,000 UNIT Q8 01/21 2200 AC 01/23 (Porcine) SC 0524 Ibuprofen 600 MG TID PRN 01/22 1000 DC PO Ibuprofen 600 MG Q8P PRN 01/22 1000 AC PO Insulin Aspart 0 TIDAC/HS 01/22 2100 AC 01/23 SC 0809 Insulin Aspart 0 Q4 01/22 1800 DC SC Insulin Aspart 6 UNITS ONCE ONE 01/22 1545 DC 01/22 SC 01/22 1546 1604 Insulin Aspart 7 UNITS ONCE ONE 01/22 1530 CAN SC 01/22 1531 Insulin Aspart 0 TIDAC/HS 01/22 1200 DC 01/22 SC 1124 Insulin Detemir 6 UNITS BID 01/22 2200 AC SC Insulin Detemir 10 UNITS BID 01/22 1000 DC 01/22 SC 0948 Insulin Human Regular 100 UNIT Q24H 01/22 0930 DC Sodium Chloride 100 ML IV Pantoprazole Sodium 40 MG DAILY 01/21 1827 AC 01/22 IV 0948 Phosphate 250 MG PC AND AT BEDTIME 01/22 1800 CAN PO Phosphate 250 MG PC AND AT BEDTIME 01/22 1600 CAN PO Phosphate 250 MG ONCE ONE 01/22 1545 DC 01/22 PO 01/22 1546 1604 Phosphate 250 MG ONCE ONE 01/22 1130 CAN PO 01/22 1131 Potassium Chloride 20 MEQ ONCE ONE 01/23 0645 CAN PO 01/23 0646 Potassium Chloride 40 MEQ ONCE ONE 01/23 0630 DC 01/23 PO 01/23 0631 0640 Potassium Chloride 40 MEQ ONCE ONE 01/23 0600 CAN PO 01/23 0601 Potassium Chloride 40 MEQ Q13H 01/22 2215 AC 01/22 Dextrose/Sodium 1,000 ML IV 01/23 1114 2328 Chloride Potassium Chloride 40 MEQ ONCE ONE 01/23 2000 DC PO 01/22 2001 Potassium Chloride 20 MEQ ONCE ONE 01/22 1930 DC 01/22 PO 01/22 193 1928 Potassium Chloride 20 MEQ ONCE ONE 01/22 1930 DC 01/22 PO 01/22 193 1928 Potassium Chloride 40 MEQ ONCE ONE 01/22 1845 CAN PO 01/22 1846 Potassium Chloride 40 MEQ Q13H 01/22 1545 DC 01/22 Dextrose/Sodium 1,000 ML IV 01/22 2200 1552 Chloride Potassium Chloride 20 MEQ Q13H 01/22 1530 CAN Dextrose/Sodium 1,000 ML IV Chloride Potassium Chloride 40 MEQ Q10H 01/22 0815 DC Dextrose/Sodium 1,000 ML IV Chloride Potassium Phosphate 15 mMol ONE ONE 01/22 2315 DC 01/23 Sodium Chloride 250 ML IV 01/23 0318 0042 Laboratory Tests 01/23 01/22 01/22 0400 2148 1740 Chemistry Sodium (137 - 145 mmol/L) 136 L 132 L 132 L Potassium (3.5 - 5.1 mmol/L) 3.4 L 3.3 L 2.8 *L Chloride (98 - 107 mmol/L) 106 104 103 Carbon Dioxide (22 - 30 mmol/L) 16 L 15 L 14 L Anion Gap (5 - 16) 13 12 14 BUN (7 - 17 mg/dL) 4 L 4 L 4 L Creatinine (0.5 - 1.0 mg/dL) 0.4 L 0.4 L 0.5 Estimated GFR (>60 ml/min) > 60 > 60 > 60 BUN/Creatinine Ratio (7 - 25 %) 10.0 10.0 8.0 Lactic Acid (0.7 - 2.1 mmol/L) 1.6 Phosphorus (2.5 - 4.5 mg/dL) 3.2 0.9 *L Hematology CBC w Diff Pending WBC (4.8 - 10.8 /CUMM) 13.5 H RBC (4.20 - 5.40 /CUMM) 3.87 L Hgb (12.0 - 16.0 G/DL) 12.2 Hct (37 - 47 %) 35.9 L MCV (81.0 - 99.0 FL) 92.7 MCH (27.0 - 31.0 PG) 31.6 H RDW (11.5 - 14.5 %) 18.4 H Plt Count (130 - 400 /CUMM) 325 MPV (7.4 - 10.4 FL) 9.2 Gran % (42.2 - 75.2 %) 68.7 Lymphocytes % (20.5 - 51.1 %) 22.4 Monocytes % (1.7 - 9.3 %) 7.3 Eosinophils % (0 - 5 %) 0.8 Basophils % (0.0 - 2.0 %) 0.8 Absolute Granulocytes (1.4 - 6.5 /CUMM) 9.3 H Absolute Lymphocytes (1.2 - 3.4 /CUMM) 3.0 Absolute Monocytes (0.10 - 0.60 /CUMM) 1.0 H Absolute Eosinophils (0.0 - 0.7 /CUMM) 0.1 Absolute Basophils (0.0 - 0.2 /CUMM) 0.1 PUBS MCHC (33.0 - 37.0 G/DL) 34.1 Toxicology Acetone Level (NEGATIVE) POSITIVE AT 1:2 DIL 01/22 01/22 01/22 1415 1058 1055 Chemistry Sodium (137 - 145 mmol/L) 133 L Potassium (3.5 - 5.1 mmol/L) 3.7 Chloride (98 - 107 mmol/L) 103 Carbon Dioxide (22 - 30 mmol/L) 9 *L Anion Gap (5 - 16) 21 H BUN (7 - 17 mg/dL) 5 L Creatinine (0.5 - 1.0 mg/dL) 0.5 Estimated GFR (>60 ml/min) > 60 BUN/Creatinine Ratio (7 - 25 %) 10.0 Lactic Acid (0.7 - 2.1 mmol/L) 2.4 H Phosphorus (2.5 - 4.5 mg/dL) 0.9 *L Hematology CBC w Diff MAN DIFF ORDERED WBC (4.8 - 10.8 /CUMM) 19.7 H RBC (4.20 - 5.40 /CUMM) 4.65 Hgb (12.0 - 16.0 G/DL) 14.5 Hct (37 - 47 %) 43.0 MCV (81.0 - 99.0 FL) 92.4 MCH (27.0 - 31.0 PG) 31.1 H RDW (11.5 - 14.5 %) 17.7 H Plt Count (130 - 400 /CUMM) 399 MPV (7.4 - 10.4 FL) 8.3 Gran % (42.2 - 75.2 %) 83.1 H Lymphocytes % (20.5 - 51.1 %) 11.1 L Monocytes % (1.7 - 9.3 %) 4.8 Eosinophils % (0 - 5 %) 0.6 Basophils % (0.0 - 2.0 %) 0.4 Absolute Granulocytes (1.4 - 6.5 /CUMM) 16.4 H Segmented Neutrophils (42.2 - 75.2 %) 77 H Band Neutrophils (0.0 - 5.0 %) 8 H Absolute Lymphocytes (1.2 - 3.4 /CUMM) 2.2 Lymphocytes (20.5 - 51.1 %) 13 L Monocytes (1.7 - 9.3 %) 2 Absolute Monocytes (0.10 - 0.60 /CUMM) 0.9 H Absolute Eosinophils (0.0 - 0.7 /CUMM) 0.1 Absolute Basophils (0.0 - 0.2 /CUMM) 0.1 Platelet Estimate (ADEQUATE) VERIFIED BY SMEAR Anisocytosis 1+ PUBS MCHC (33.0 - 37.0 G/DL) 33.7 Toxicology Acetone Level (NEGATIVE) ND Vital Signs Date Time Temp Pulse Resp B/P Pulse O2 O2 Flow FiO2 Ox Delivery Rate 01/23 0800 98.3 95 18 98/74 01/23 0800 98.3 95 18 98/74 98 Room Air 01/23 0600 90 20 108/74 01/23 0400 98.5 83 20 120/70 01/23 0400 98 Room Air 01/23 0200 77 18 01/23 0000 98.4 81 16 104/60 01/23 0000 98 Room Air 01/23 0000 98.4 81 16 104/60 98 Room Air 01/22 2200 88 18 99/65 04/13 2000 99.3 94 20 106/68 01/23 2000 100 Room Air 01/22 1800 98.4 92 23 104/76 01/22 1600 98.4 89 23 100/60 01/22 1600 100 Room Air Room Air 01/22 1600 98.4 89 23 100/60 100 Room Air Room Air 01/22 1400 97.6 94 19 139/83 01/22 1200 97.0 90 22 127/80 01/22 1000 97.0 90 18 123/70
--- NOTE | 2017-01-23 09:43 | PN- CRCU ---
Subjective HPI/Critical Care Issues: The patient is awake and alert. She reports feeling well overall. She denies any complaints today whatsoever. Her blood pressure has been elevated but is improved this morning. BSs fluctuating yesterday. She remains afebrile. She denies any chest pain, shortness of breath, nausea, vomiting, abdominal pain, fever or chills. Objective Current Medications: Current Medications Sig/Philip Start time Last Medication Dose Route Stop Time Status Admin Ampicillin Sodium/ 3,000 MG Q6 01/21 1800 AC 01/23 Sulbactam Sodium IV 0524 Sodium Chloride 100 ML Heparin Sodium 5,000 UNIT Q8 01/21 2200 AC 01/23 (Porcine) SC 0524 Ibuprofen 600 MG TID PRN 01/22 1000 DC PO Ibuprofen 600 MG Q8P PRN 01/22 1000 AC PO Insulin Aspart 0 TIDAC/HS 01/22 2100 AC 01/23 SC 0809 Insulin Aspart 0 Q4 01/22 1800 DC SC Insulin Aspart 6 UNITS ONCE ONE 01/22 1545 DC 01/22 SC 01/22 1546 1604 Insulin Aspart 7 UNITS ONCE ONE 01/22 1530 CAN SC 01/22 1531 Insulin Aspart 0 TIDAC/HS 01/22 1200 DC 01/22 SC 1124 Insulin Detemir 6 UNITS BID 01/22 2200 AC SC Insulin Detemir 10 UNITS BID 01/22 1000 DC 01/22 SC 0948 Insulin Human Regular 100 UNIT Q24H 01/22 0930 DC Sodium Chloride 100 ML IV Pantoprazole Sodium 40 MG DAILY 01/21 1827 AC 01/22 IV 0948 Phosphate 250 MG PC AND AT BEDTIME 01/22 1800 CAN PO Phosphate 250 MG PC AND AT BEDTIME 01/22 1600 CAN PO Phosphate 250 MG ONCE ONE 01/22 1545 DC 01/22 PO 01/22 1546 1604 Phosphate 250 MG ONCE ONE 01/22 1130 CAN PO 01/22 1131 Potassium Chloride 20 MEQ ONCE ONE 01/23 0645 CAN PO 01/23 0646 Potassium Chloride 40 MEQ ONCE ONE 01/23 0630 DC 01/23 PO 01/23 0631 0640 Potassium Chloride 40 MEQ ONCE ONE 01/23 0600 CAN PO 01/23 0601 Potassium Chloride 40 MEQ Q13H 01/22 2215 AC 01/22 Dextrose/Sodium 1,000 ML IV 01/23 1114 2328 Chloride Potassium Chloride 40 MEQ ONCE ONE 04/13 2000 DC PO 01/22 2001 Potassium Chloride 20 MEQ ONCE ONE 01/22 1930 DC 01/22 PO 01/22 Potassium Chloride 20 MEQ ONCE ONE 01/22 1930 DC 01/22 PO 01/22 1931 192 Potassium Chloride 40 MEQ ONCE ONE 01/22 1845 CAN PO 01/22 1846 Potassium Chloride 40 MEQ Q13H 01/22 1545 DC 01/22 Dextrose/Sodium 1,000 ML IV 01/22 2200 1552 Chloride Potassium Chloride 20 MEQ Q13H 01/22 1530 CAN Dextrose/Sodium 1,000 ML IV Chloride Potassium Chloride 40 MEQ Q10H 01/22 0815 DC Dextrose/Sodium 1,000 ML IV Chloride Potassium Phosphate 15 mMol ONE ONE 01/22 2315 DC 01/23 Sodium Chloride 250 ML IV 01/23 0318 0042 Vital Signs & I&O Last 24 Hrs of Vitals and I&O: Vital Signs Date Time Temp Pulse Resp B/P Pulse O2 O2 Flow FiO2 Ox Delivery Rate 01/23 0800 98.3 95 18 98/74 01/23 0800 98.3 95 18 98/74 98 Room Air 01/23 0600 90 20 108/74 01/23 0400 98.5 83 20 120/70 01/23 0400 98 Room Air 01/23 0200 77 18 01/23 0000 98.4 81 16 104/60 01/23 0000 98 Room Air 01/23 0000 98.4 81 16 104/60 98 Room Air 01/22 2200 88 18 99/65 01/22 2000 99.3 94 20 106/68 01/22 2000 100 Room Air 01/22 1800 98.4 92 23 104/76 01/22 1600 98.4 89 23 100/60 01/22 1600 100 Room Air Room Air 01/22 1600 98.4 89 23 100/60 100 Room Air Room Air 01/22 1400 97.6 94 19 139/83 01/22 1200 97.0 90 22 127/80 01/22 1000 97.0 90 18 123/70 Intake & Output 01/23 1600 01/23 0800 01/23 0000 Intake Total 1250 843 Output Total 1000 350 Balance 250 493 Intake, IV 1050 523 Intake, Oral 200 320 Output, Urine 1000 350 Physical Exam General Appearance Awake and alert, much more comfortable HEENT Pupils equal and reactive, poor dentition Cardiovascular Regular Rate, Normal S1, Normal S2, No Murmurs Lungs Clear to Auscultation Abdomen Normal Bowel Sounds, Soft, No Tenderness Extremities Warm and dry, no edema Results Last 24 Hrs of Lab Results: Laboratory Tests 01/23/17 0400: Anion Gap 13, Estimated GFR > 60, BUN/Creatinine Ratio 10.0, Phosphorus 3.2, CBC w Diff Pending, RBC 3.87 L, MCV 92.7, MCH 31.6 H, RDW 18.4 H, MPV 9.2, Gran % 68.7, Lymphocytes % 22.4, Monocytes % 7.3, Eosinophils % 0.8, Basophils % 0.8, Absolute Granulocytes 9.3 H, Absolute Lymphocytes 3.0, Absolute Monocytes 1.0 H, Absolute Eosinophils 0.1, Absolute Basophils 0.1, PUBS MCHC 34.1 01/22/17 2148: Anion Gap 12, Estimated GFR > 60, BUN/Creatinine Ratio 10.0, Phosphorus 0.9 *L 01/22/17 1740: Anion Gap 14, Estimated GFR > 60, BUN/Creatinine Ratio 8.0, Lactic Acid 1.6, Acetone Level POSITIVE AT 1:2 DIL 01/22/17 1415: Anion Gap 21 H, Estimated GFR > 60, BUN/Creatinine Ratio 10.0, Phosphorus 0.9 * L, Acetone Level ND 01/22/17 1058: CBC w Diff MAN DIFF ORDERED, RBC 4.65, MCV 92.4, MCH 31.1 H, RDW 17.7 H, MPV 8.3, Gran % 83.1 H, Lymphocytes % 11.1 L, Monocytes % 4.8, Eosinophils % 0.6, Basophils % 0.4, Absolute Granulocytes 16.4 H, Segmented Neutrophils 77 H, Band Neutrophils 8 H, Absolute Lymphocytes 2.2, Lymphocytes 13 L, Monocytes 2, Absolute Monocytes 0.9 H, Absolute Eosinophils 0.1, Absolute Basophils 0.1, Platelet Estimate VERIFIED BY SMEAR, Anisocytosis 1+, PUBS MCHC 33.7 01/22/17 1055: Lactic Acid 2.4 H Impression/Plan Impression/Plan Impression/Plan: 1. Diabetic ketoacidosis, clinically improved. Repeat blood work is being attempted now. 2. Severe metabolic acidosis due to DKA. 3. Hypothermia, resolved. 4. Sepsis in the setting of recent teeth extractions, no evidence of abscess on CAT scan. 5. Electrolyte abnormalities. 6. Chronic pain. As per the patient, she has been off opiates and only takes meloxicam daily. 7. History of seizures related to medication, although this is unclear. The patient's reported the patient seized secondary to tramadol, however the patient states she has had a bad reaction/possible seizures to both Nucynta and Soma. 8. History of alcohol abuse. 9. Hypertension, asymptomatic. Recommendations: * Continue IVFs - d/c if ok with endocrinology. * Continue insulin as recommended by endocrinology. * Follow up culture results. * Continue IV Unasyn as recommended by ID. * Meloxicam daily. * Psychiatry and social service input. * DVT prophylaxis at all times. * Out of bed to chair. * Gen med. * Will discharge to home when cleared by endocrine.
--- NOTE | 2017-01-23 10:37 | Patient Discharge Instructions ---
Discharge Instructions General Discharge Information You were seen/treated for: Diabetic ketoacidosis. Hypotension (Low BP) Diabetes Watch for these problems: Nausea, vomiting, fever, chills, weakness, elevated blood sugar. If you develop any facial or dental pain in the next 24-48 hours please inform your primary care physician. If you develop any adverse reactions from the medications prescribed to please stop taking these and inform your primary care physician. Special Instructions: Please inform your primary care physician of this admission to the hospital. Please follow-up with your primary care physician (Dr Villasenor) on 01/26/2017. Please follow-up with your it help desk analyst (Dr Damico or Dr Flynn) on 01/26/2017. We have provide you with a referral. We also provided you a referral for psychiatry. Please arrange an appointment and follow-up with them as per your previous conversation while in the hospital. Please check your blood sugar four times per day. Maintan a log and take this log to your primary care physician. On 01/30/2017, please have a BEP and TSH and Free T4 done. CC, the results of these to Dr Damico or Dr Flynn (it help desk analyst). We have provided you with a script. Diet Continue normal diet: No Recommended Diet: Diabetic Activity Full Activity/No Limits: No Activity Self Limited: Yes (As Tolerated) Acute Coronary Syndrome Inclusion Criteria At DC or during hospital stay patient has or had the following: ACS DIAGNOSIS No Discharge Core Measures Meds if any: Prescribed or Continued at Discharge Meds if any: NOT Prescribed or Continued at Discharge Congestive Heart Failure Inclusion Criteria At DC or during hospital stay patient has or had the following: CHF DIAGNOSIS No Discharge Core Measures Meds if any: Prescribed or Continued at Discharge Meds if any: NOT Prescribed or Continued at Discharge Cerebrovascular accident Inclusion Criteria At DC or during hospital stay patient has or had the following: CVA/TIA Diagnosis No Discharge Core Measures Meds if any: Prescribed or Continued at Discharge Meds if any: NOT Prescribed or Continued at Discharge Venous thromboembolism Inclusion Criteria VTE Diagnosis No VTE Type NONE VTE Confirmed by (Test) NONE Discharge Core Measures - Per Current guidelines, there needs to be overlap - treatment for the first 5 days of Warfarin therapy. - If discharged on Warfarin prior to 5 days of - overlap therapy, the patient will need to be - assessed for post discharge needs including - *Post discharge parental anticoagulation - *Warfarin and/or parental anticoagulation education - *Follow up date to check INR post discharge At least 5 days overlap therapy as Inpatient No Meds if any: Prescribed or Continued at Discharge Note: Overlap Therapy is Warfarin and Anticoagulant Meds if any: NOT Prescribed or Continued at Discharge
[2017-01-23] MEDS ORDERED: KLOR-CON20 ME1 PO (10:55)
--- NOTE | 2017-01-23 11:05 | PN- Infect Dx ---
Subjective Subjective: Afebrile. She notes some mild dysphagia but otherwise feels well with no complaints. She does report a mucusy stool yesterday morning. Objective Last 24 Hrs of Vital Signs/I&O Vital Signs Date Time Temp Pulse Resp B/P Pulse O2 O2 Flow FiO2 Ox Delivery Rate 01/23 0800 98.3 95 18 98/74 01/23 0800 98.3 95 18 98/74 98 Room Air 01/23 0600 90 20 108/74 01/23 0400 98.5 83 20 120/70 01/23 0400 98 Room Air 01/23 0200 77 18 01/23 0000 98.4 81 16 104/60 01/23 0000 98 Room Air 01/23 0000 98.4 81 16 104/60 98 Room Air 01/22 2200 88 18 99/65 01/22 2000 99.3 94 20 106/68 01/22 2000 100 Room Air 01/22 1800 98.4 92 23 104/76 01/22 1600 98.4 89 23 100/60 01/22 1600 100 Room Air Room Air 01/22 1600 98.4 89 23 100/60 100 Room Air Room Air 01/22 1400 97.6 94 19 139/83 01/22 1200 97.0 90 22 127/80 Intake & Output 01/23 1600 01/23 0800 01/23 0000 Intake Total 735 1250 843 Output Total 1000 350 Balance 735 250 493 Intake, IV 255 1050 523 Intake, Oral 480 200 320 Output, Urine 1000 350 Physical Exam Other Physical Findings: She appears comfortable in no acute distress HEENT no evidence for infection Lungs are clear Heart regular rhythm with no murmur Abdomen soft, mildly tender on palpation diffusely, with no guarding or rebound, positive bowel sounds Back no CVA tenderness Extremities no cyanosis, clubbing or edema Results Last 24 Hours of Lab Results: Laboratory Tests 01/23 01/22 01/22 0400 2148 1740 Chemistry Sodium (137 - 145 mmol/L) 136 L 132 L 132 L Potassium (3.5 - 5.1 mmol/L) 3.4 L 3.3 L 2.8 *L Chloride (98 - 107 mmol/L) 106 104 103 Carbon Dioxide (22 - 30 mmol/L) 16 L 15 L 14 L Anion Gap (5 - 16) 13 12 14 BUN (7 - 17 mg/dL) 4 L 4 L 4 L Creatinine (0.5 - 1.0 mg/dL) 0.4 L 0.4 L 0.5 Estimated GFR (>60 ml/min) > 60 > 60 > 60 BUN/Creatinine Ratio (7 - 25 %) 10.0 10.0 8.0 Lactic Acid (0.7 - 2.1 mmol/L) 1.6 Phosphorus (2.5 - 4.5 mg/dL) 3.2 0.9 *L Hematology CBC w Diff Pending WBC (4.8 - 10.8 /CUMM) 13.5 H RBC (4.20 - 5.40 /CUMM) 3.87 L Hgb (12.0 - 16.0 G/DL) 12.2 Hct (37 - 47 %) 35.9 L MCV (81.0 - 99.0 FL) 92.7 MCH (27.0 - 31.0 PG) 31.6 H RDW (11.5 - 14.5 %) 18.4 H Plt Count (130 - 400 /CUMM) 325 MPV (7.4 - 10.4 FL) 9.2 Gran % (42.2 - 75.2 %) 68.7 Lymphocytes % (20.5 - 51.1 %) 22.4 Monocytes % (1.7 - 9.3 %) 7.3 Eosinophils % (0 - 5 %) 0.8 Basophils % (0.0 - 2.0 %) 0.8 Absolute Granulocytes (1.4 - 6.5 /CUMM) 9.3 H Absolute Lymphocytes (1.2 - 3.4 /CUMM) 3.0 Absolute Monocytes (0.10 - 0.60 /CUMM) 1.0 H Absolute Eosinophils (0.0 - 0.7 /CUMM) 0.1 Absolute Basophils (0.0 - 0.2 /CUMM) 0.1 PUBS MCHC (33.0 - 37.0 G/DL) 34.1 Toxicology Acetone Level (NEGATIVE) POSITIVE AT 1:2 DIL 01/22 1415 Chemistry Sodium (137 - 145 mmol/L) 133 L Potassium (3.5 - 5.1 mmol/L) 3.7 Chloride (98 - 107 mmol/L) 103 Carbon Dioxide (22 - 30 mmol/L) 9 *L Anion Gap (5 - 16) 21 H BUN (7 - 17 mg/dL) 5 L Creatinine (0.5 - 1.0 mg/dL) 0.5 Estimated GFR (>60 ml/min) > 60 BUN/Creatinine Ratio (7 - 25 %) 10.0 Phosphorus (2.5 - 4.5 mg/dL) 0.9 *L Toxicology Acetone Level (NEGATIVE) ND Last 24 Hours of Brooks Results: Blood cultures 2 January 21 negative Urine culture January 21 approximately 20,000 colonies of gram-negative rods and approximately 10,000 colonies of gram-positive cocci Assessment/Plan Impression: Improved with resolution of her ketoacidosis, with temperatures remaining normal and white blood cell count decreasing on Unasyn, begun empirically for possible sepsis, with no obvious source identified and with blood cultures remaining negative. Her positive urine culture likely represents contamination, with no urinary symptoms, only 10,000-20,000 colonies reported and a negative urinalysis. The role of antibiotics at this point is unclear and feel that they can be discontinued. Suggestion: 1. Stool for C. difficile if diarrhea 2. Discontinue Unasyn and follow off antibiotics
--- NOTE | 2017-01-23 11:27 | PN- Diabetes ---
See Addendum Assessment/Plan Assessment: The patient feels much improved and would like to go home today. She received Levemir 10 units in the morning on 01/22/2017. her FSGs were 219, 114, 88, 187, 220 and 224. IVF was discontinued. Am lab showed K 3.4, bicarb 16. Her HbA1c is 17.8%. 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 She discontinued thyroid medication on her own after she noticed that the thyroid medication didn't help her symptoms. Plan: 1. Repeat BMP; her bicarb has to be at least above 18 before she can be discharged. 2. she received K supplement this morning; monitor K level; 3. decrease Levemir to 5 units twice a day; 4. continue the current Novolog coverage before meals and Novolog coverage at bedtime; 5. monitor FSGs; ? Hx of thyroid disorder. I will recommended checking TSH and free T4. 6. when patient is medically stable for discharge, she will go home on ---Levemir 5 units twice a day; ---Novolog coverage before meals-- detail see the current Novolog scale before meal. ---no Novolog coverage at bedtime. ---monitor FSGs x 4 times a day. ---patient prefers going home with insulin pen; insulin pen teaching. ---please prepare Rxs for insulin pen, pen needles, glucometer, test trips and lancets, etc. ---f/u in office with Dr. Damico after discharge. Please call me if there are any questions. Subjective Subjective: She feels better and would like to go home. Objective Last 24 Hrs of Vital Signs/I&O Vital Signs Date Time Temp Pulse Resp B/P Pulse O2 O2 Flow FiO2 Ox Delivery Rate 01/23 0800 98.3 95 18 98/74 01/23 0800 98.3 95 18 98/74 98 Room Air 01/23 0600 90 20 108/74 01/23 0400 98.5 83 20 120/70 01/23 0400 98 Room Air 01/23 0200 77 18 01/23 0000 98.4 81 16 104/60 01/23 0000 98 Room Air 01/23 0000 98.4 81 16 104/60 98 Room Air 01/22 2200 88 18 99/65 01/23 2000 99.3 94 20 106/68 01/23 2000 100 Room Air 01/22 1800 98.4 92 23 104/76 01/22 1600 98.4 89 23 100/60 01/22 1600 100 Room Air Room Air 01/22 1600 98.4 89 23 100/60 100 Room Air Room Air 01/22 1400 97.6 94 19 139/83 01/22 1200 97.0 90 22 127/80 Intake & Output 01/23 1600 01/23 0800 01/23 0000 Intake Total 735 1250 843 Output Total 1000 350 Balance 735 250 493 Intake, IV 255 1050 523 Intake, Oral 480 200 320 Output, Urine 1000 350 Findings Pertinent Lab/Brooks Results: Laboratory Tests 01/23 01/22 01/22 0400 2148 1740 Chemistry Sodium (137 - 145 mmol/L) 136 L 132 L 132 L Potassium (3.5 - 5.1 mmol/L) 3.4 L 3.3 L 2.8 *L Chloride (98 - 107 mmol/L) 106 104 103 Carbon Dioxide (22 - 30 mmol/L) 16 L 15 L 14 L Anion Gap (5 - 16) 13 12 14 BUN (7 - 17 mg/dL) 4 L 4 L 4 L Creatinine (0.5 - 1.0 mg/dL) 0.4 L 0.4 L 0.5 Estimated GFR (>60 ml/min) > 60 > 60 > 60 BUN/Creatinine Ratio (7 - 25 %) 10.0 10.0 8.0 Lactic Acid (0.7 - 2.1 mmol/L) 1.6 Phosphorus (2.5 - 4.5 mg/dL) 3.2 0.9 *L TSH (0.270 - 4.200 uIU/mL) Pending Free T4 (0.64 - 1.79 ng/dL) Pending Hematology CBC w Diff Pending WBC (4.8 - 10.8 /CUMM) 13.5 H RBC (4.20 - 5.40 /CUMM) 3.87 L Hgb (12.0 - 16.0 G/DL) 12.2 Hct (37 - 47 %) 35.9 L MCV (81.0 - 99.0 FL) 92.7 MCH (27.0 - 31.0 PG) 31.6 H RDW (11.5 - 14.5 %) 18.4 H Plt Count (130 - 400 /CUMM) 325 MPV (7.4 - 10.4 FL) 9.2 Gran % (42.2 - 75.2 %) 68.7 Lymphocytes % (20.5 - 51.1 %) 22.4 Monocytes % (1.7 - 9.3 %) 7.3 Eosinophils % (0 - 5 %) 0.8 Basophils % (0.0 - 2.0 %) 0.8 Absolute Granulocytes (1.4 - 6.5 /CUMM) 9.3 H Absolute Lymphocytes (1.2 - 3.4 /CUMM) 3.0 Absolute Monocytes (0.10 - 0.60 /CUMM) 1.0 H Absolute Eosinophils (0.0 - 0.7 /CUMM) 0.1 Absolute Basophils (0.0 - 0.2 /CUMM) 0.1 PUBS MCHC (33.0 - 37.0 G/DL) 34.1 Toxicology Acetone Level (NEGATIVE) POSITIVE AT 1:2 DIL 01/22 1415 Chemistry Sodium (137 - 145 mmol/L) 133 L Potassium (3.5 - 5.1 mmol/L) 3.7 Chloride (98 - 107 mmol/L) 103 Carbon Dioxide (22 - 30 mmol/L) 9 *L Anion Gap (5 - 16) 21 H BUN (7 - 17 mg/dL) 5 L Creatinine (0.5 - 1.0 mg/dL) 0.5 Estimated GFR (>60 ml/min) > 60 BUN/Creatinine Ratio (7 - 25 %) 10.0 Phosphorus (2.5 - 4.5 mg/dL) 0.9 *L Toxicology Acetone Level (NEGATIVE) ND
[2017-01-23] MEDS ORDERED: TEST STRIPS1 EACH N (12:33)
[2017-01-23] MEDS ORDERED: NOVOLOG FL100 UNIT/1 SC (12:33)
[2017-01-23] MEDS ORDERED: LEVEMIR FL100 UNIT/1 SC (12:33)
[2017-01-23] MEDS ORDERED: METER-CHECK1 EACH (12:33)
[2017-01-23] MEDS ORDERED: ACCU-CHEK1 EACH N (12:33)
[2017-01-23] MEDS ORDERED: SYNTHROID25 MCG PO (14:20)
[2017-01-23] MEDS ORDERED: SYNTHROID75 MCG PO (14:55)
[2017-01-23 16:00] VITALS: BP 100/60
--- NOTE | 2017-02-06 17:46 | Discharge Summary ---
Visit Information Visit Dates Admission Date: 01/21/17 Discharge Date: 01/23/17 Hospital Course Course Attending Physician: TRINA ROUSE MD Primary Care Physician: PETER MAHONEY MD Consulting Request: Consulting Specialty: Psychiatry Consulting Physician: MD Dr. bimal Ramos 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 1. Diabetic ketoacidosis Diabetic ketoacidosis with severe acidosis, pH of 6 and positive acetone. patient was admitted to the ICU requiring insulin drip. She was followed by Dr. wallis who recommended insulin at the time of discharge. Her hemoglobin A1c was 17 and she will follow up with Dr. Wallis as outpatient. 2. Leukocytosis due to DKA WBC on admission was 29.7. Patient received vancomycin in the emergency department. CT of head and neck was negative for dental abscesses. Elevated WBC was likely in the setting of stress demargination from DKA. Her cultures remained negative and was followed off antibiotics. 3. Substance abuse patient had a positive U tox with benzo and marijuana. She was seen by psychiatry who recommended outpatient follow-up. The patient did not have any withdrawal symptoms and did not require detox. 4. Hypothyroidism Patient started on Levothyroxine given elvated TSH and Low F T4. Repeat TFT and BEP to be done as outpatient and will be followed by Endocirnologist. Allergies: Coded Allergies: tramadol (Intermediate, SEIZURES 01/21/17) Disposition Summary Disposition Principal Diagnosis: DKA new-onset diabetes Additional Diagnosis: substance abuse Hypothyroidism Leukocytosis Discharge Disposition: home or self care Discharge Instructions General Discharge Information Code Status: Full Code Patient's Diet: diabetic diet Patient's Activity: no restrictions Follow-Up Instructions/Appts: follow-up with psych, endocrinology and at our office within 2 weeks of discharge. Medications at Discharge Discharge Medications: Start taking the following new medications: Blood-Glucose Control, Normal (Meter-Check) 1 EACH EACH 1 Unit UNKNOWN DAILY Qty = 1 No Refills Lancets (Accu-Chek) 1 EACH EACH 1 100 NONE THREE TIMES DAILY Qty = 100 No Refills Blood Sugar Diagnostic (Test Strips) 1 EACH STRIP 1 Box NONE THREE TIMES DAILY Qty = 100 No Refills Insulin Detemir (Levemir Flextouch) 100 UNIT/ML (3 ML) INSULN.PEN 5 Unit Inject into fatty tissue TWICE DAILY Qty = 1 No Refills Insulin Aspart, Recombinant (Novolog Flexpen) 100 UNIT/ML INSULN.PEN 1 Flexpen Inject into fatty tissue SEE INSTRUCTIONS Qty = 1 No Refills Instructions: This medication needs to be taken before your meals. You will need to check your blood sugar, based on the level, take this medication as per instructions below: Sliding Scale: Blood Sugar less than 80mg/dl: Initiate Hypoglycemia 80-150 mg/dl: 3 units 151-200 mg/dl: 4 units 201-250 mg/dl: 5 units 251-300 mg/dl: 6 units 301-350 mg/dl: 7 units 351-400 mg/dl: 8 units More than 400 mg/dl: 9 units call Levothyroxine Sodium (Synthroid) 75 MCG TABLET 1 Tablet ORAL DAILY Qty = 30 No Refills Copies To: BIMAL PACE,ARLEY Attending MD Review Statement Documenting Attending: TRINA ROUSE MD
== END 2017-01-23 16:40 | disposition home health service (06) | DRG 637 ==
LOC: ENRESERVDT → ENRESERVTM → ERH 10:06 → ERHI 11:28 → CRI 11:28 → ERH 11:54 → CRI 16:44
PROVIDERS: Emergency Medicine; Internal Medicine; Student in an Organized Health Care Education/Training Program; ADMIT Internal Medicine Pulmonary Disease
DX: E13.10 Other specified diabetes mellitus with ketoacidosis without coma (principal); A41.9 Sepsis, unspecified organism; E87.5 Hyperkalemia; Z79.4 Long term (current) use of insulin; E06.3 Autoimmune thyroiditis; F17.200 Nicotine dependence, unspecified, uncomplicated
CPT/HCPCS: 84133; 84300; CCU; 36415; 80307; 81001; 82436; 82570; 87040; 87070; 87086; 87147; 87804; 87804-59; 93005; 93010; 96361; 96365; 96366; 96374; 96375; 97116-GO; 97161-GP; 97530-GO; 99233; 99291; J0713; J1644; J1815; J2310; J3370; J7040; J7042; J7060